=== PATIENT | male | born 1960 | race Caucasian/White ===

== ENCOUNTER → 2023-04-26 10:13 | Outpatient (REF) | payer MEDICARE, OTHER, SELFPAY | LOC: WOUND 10:13 | PROVIDERS: ATTENDING PHYSICIAN Surgery; REFERRING PHYSICIAN Internal Medicine | DX: I87.312 Chronic venous hypertension (idiopathic) with ulcer of left lower extremity (principal); L97.822 Non-pressure chronic ulcer of other part of left lower leg with fat layer exposed; L97.222 Non-pressure chronic ulcer of left calf with fat layer exposed; L97.522 Non-pressure chronic ulcer of other part of left foot with fat layer exposed; I87.2 Venous insufficiency (chronic) (peripheral); E11.9 Type 2 diabetes mellitus without complications; Z87.820 Personal history of traumatic brain injury; G81.94 Hemiplegia, unspecified affecting left nondominant side; Z79.01 Long term (current) use of anticoagulants; I48.20 Chronic atrial fibrillation, unspecified | CPT/HCPCS: 97597; 99212 ==

== ENCOUNTER → 2023-05-24 09:08 | Outpatient (REF) | payer MEDICARE, OTHER, SELFPAY | LOC: WOUND 09:08 | PROVIDERS: ATTENDING PHYSICIAN Surgery; REFERRING PHYSICIAN Internal Medicine | DX: I87.312 Chronic venous hypertension (idiopathic) with ulcer of left lower extremity (principal); L97.822 Non-pressure chronic ulcer of other part of left lower leg with fat layer exposed; L97.222 Non-pressure chronic ulcer of left calf with fat layer exposed; L97.522 Non-pressure chronic ulcer of other part of left foot with fat layer exposed; I87.2 Venous insufficiency (chronic) (peripheral); E11.9 Type 2 diabetes mellitus without complications; Z87.820 Personal history of traumatic brain injury; G81.94 Hemiplegia, unspecified affecting left nondominant side; Z79.01 Long term (current) use of anticoagulants; I48.20 Chronic atrial fibrillation, unspecified | CPT/HCPCS: 11042; 97597 ==

== ENCOUNTER → 2023-08-21 14:32 | Outpatient (REF) | payer MEDICARE, OTHER, SELFPAY | LOC: WOUND 14:32 | PROVIDERS: ATTENDING PHYSICIAN Surgery; REFERRING PHYSICIAN Internal Medicine | DX: I87.312 Chronic venous hypertension (idiopathic) with ulcer of left lower extremity (principal); L97.822 Non-pressure chronic ulcer of other part of left lower leg with fat layer exposed; L97.222 Non-pressure chronic ulcer of left calf with fat layer exposed; L97.522 Non-pressure chronic ulcer of other part of left foot with fat layer exposed; I87.2 Venous insufficiency (chronic) (peripheral); E11.622 Type 2 diabetes mellitus with other skin ulcer; E11.621 Type 2 diabetes mellitus with foot ulcer | CPT/HCPCS: 11042; 97597 ==

== ENCOUNTER → 2023-09-24 14:21 | Outpatient (REF) | payer MEDICARE, OTHER, SELFPAY | LOC: WOUND 14:21 | PROVIDERS: ATTENDING PHYSICIAN Surgery; FAMILY PHYSICIAN Orthopaedic Surgery | DX: I87.312 Chronic venous hypertension (idiopathic) with ulcer of left lower extremity (principal); L97.822 Non-pressure chronic ulcer of other part of left lower leg with fat layer exposed; L97.222 Non-pressure chronic ulcer of left calf with fat layer exposed; L97.522 Non-pressure chronic ulcer of other part of left foot with fat layer exposed; I87.2 Venous insufficiency (chronic) (peripheral); E11.9 Type 2 diabetes mellitus without complications; Z87.820 Personal history of traumatic brain injury; G81.94 Hemiplegia, unspecified affecting left nondominant side; Z79.01 Long term (current) use of anticoagulants; I48.20 Chronic atrial fibrillation, unspecified | CPT/HCPCS: 97597 ==

== ENCOUNTER → 2023-10-15 10:13 | Outpatient (REF) | payer MEDICARE, OTHER, SELFPAY | LOC: WOUND 10:13 | PROVIDERS: ATTENDING PHYSICIAN Surgery; FAMILY PHYSICIAN Internal Medicine | DX: I87.312 Chronic venous hypertension (idiopathic) with ulcer of left lower extremity (principal); L97.822 Non-pressure chronic ulcer of other part of left lower leg with fat layer exposed; L97.222 Non-pressure chronic ulcer of left calf with fat layer exposed; L97.522 Non-pressure chronic ulcer of other part of left foot with fat layer exposed; I87.2 Venous insufficiency (chronic) (peripheral); E11.9 Type 2 diabetes mellitus without complications; G81.94 Hemiplegia, unspecified affecting left nondominant side; I48.20 Chronic atrial fibrillation, unspecified; Z87.820 Personal history of traumatic brain injury | CPT/HCPCS: 97597 ==

== ENCOUNTER → 2024-02-01 12:08 | Outpatient (REF) | payer MEDICARE, OTHER, SELFPAY | LOC: WOUND 12:08 | PROVIDERS: ATTENDING PHYSICIAN Surgery | DX: I87.312 Chronic venous hypertension (idiopathic) with ulcer of left lower extremity (principal); L97.222 Non-pressure chronic ulcer of left calf with fat layer exposed; L97.522 Non-pressure chronic ulcer of other part of left foot with fat layer exposed; I87.2 Venous insufficiency (chronic) (peripheral); L97.822 Non-pressure chronic ulcer of other part of left lower leg with fat layer exposed; E11.9 Type 2 diabetes mellitus without complications; G81.94 Hemiplegia, unspecified affecting left nondominant side; I48.20 Chronic atrial fibrillation, unspecified; Z79.01 Long term (current) use of anticoagulants; Z87.820 Personal history of traumatic brain injury | CPT/HCPCS: 99213 ==

== ENCOUNTER → 2024-03-06 11:00 | Outpatient (REF) | payer MEDICARE, OTHER, SELFPAY | LOC: WOUND 11:00 | PROVIDERS: ATTENDING PHYSICIAN Surgery; FAMILY PHYSICIAN Internal Medicine | DX: I87.312 Chronic venous hypertension (idiopathic) with ulcer of left lower extremity (principal); L97.222 Non-pressure chronic ulcer of left calf with fat layer exposed; L97.522 Non-pressure chronic ulcer of other part of left foot with fat layer exposed; I87.2 Venous insufficiency (chronic) (peripheral); L97.822 Non-pressure chronic ulcer of other part of left lower leg with fat layer exposed; E11.9 Type 2 diabetes mellitus without complications; G81.94 Hemiplegia, unspecified affecting left nondominant side; I48.20 Chronic atrial fibrillation, unspecified; Z79.01 Long term (current) use of anticoagulants; Z87.820 Personal history of traumatic brain injury | CPT/HCPCS: 11042; 97597 ==

== ENCOUNTER 2024-11-26 22:07 | Inpatient (IN) | payer MEDICARE, OTHER, SELFPAY ==
[2024-11-26] VITALS (11 sets, daily range): BP systolic 91–140; BP diastolic 60–97; BMI 38.9
--- NOTE | 2024-11-26 19:00 | ED.GENMED ---
History of Present Illness
General
Chief Complaint: Fever
Time Seen by Provider: 11/26/24 19:00
History of Present Illness
History of Present Illness:
TIME OF INITIAL ENCOUNTER: 7 PM
HPI: Patient came in by ambulance from [facility] due to fever and concerns for sepsis. He has a history of left-sided weakness. Pt is a poor historian. I called [facility] for history at 1915. Nurse tells me that normally he is awake and alert
and communicates without any difficulty. Today, he seemed more tired and he did not want to eat any lunch which is extremely abnormal for him. He was not answering questions appropriately or following commands appropriately.
EXAM:
GENERAL: Ill-appearing, appears uncomfortable, he is febrile, appears akathisic, elevated BMI
HEENT: Moist oral mucosa
CARDIOVASCULAR: Tachycardic rate and rhythm
PULMONARY: Mild tachypnea
ABDOMEN: Soft and nontender with no peritoneal signs
NEUROLOGIC: The patient is not oriented to month or place, markedly decreased strength of the left lower left upper extremities, dysarthria
EXTREMITIES: There is marked warmth and erythema noted to the distal left lower extremity from knee down to the toes, wounds are noted to the pretibial region of the left lower extremity
PYSCHIATRIC: Very limited historian, poor insight and judgment, does not follow simple commands
NUMBER AND COMPLEXITY OF PROBLEMS ADDRESSED AT THE ENCOUNTER
� Chronic conditions affecting care: COPD, A-fib, CHF, high blood pressure, IDDM
� Acute Exacerbation and/or Progression of Chronic Illness: This is an acute problem
� Differential Diagnosis includes: Sepsis, bacteremia, cellulitis, UTI, pneumonia
AMOUNT AND/OR COMPLEXITY OF DATA TO BE REVIEWED AND ANALYZED
� I performed an independent evaluation of and my interpretation is:
EKG: Rapid atrial flutter Dr. Coon for admission
CT:
X-rays: Chest x-ray shows pulmonary arterial hypertension but no sign of pneumonia
Laboratory Studies: Flu negative, white count 14.3, hemoglobin normal, 87% neutrophils, creatinine 1.8 which is higher than prior, urinalysis shows no sign of infection
Other:
� Review of other/old records: I reviewed the notes from [facility] which also indicates the patient is on Depakote. Micro report from 11/27/2020 grew Pseudomonas and [place]
� Clinical information was obtained by an independent historian: I spoke to staff at [facility] at 7:15 PM
� Prescriptions/Medications Considered but not given:
� Further testing considered but not performed:
RISK OF COMPLICATIONS AND/OR MORBIDITY OR MORTALITY OF PATIENT MANAGEMENT
� Social determinants of health affecting care: Resides at [facility]
� Discussion with other providers: Dr. Coon for admission
� Escalation of care including admission/observation vs risk of discharge considered: The patient is found to be tachycardic, febrile and meets sepsis criteria. Giving Vanco and Zosyn for diabetic wound infection involving the
left lower extremity.
ANY OTHER UPDATES:
Patient will be admitted for sepsis likely sources left lower extremity wound infection/cellulitis, XENIA, altered mental status.
Past History
Past History
ED Past Medical History: Arrthythmia (atrial fib), CHF, COPD, CVA, HTN, Hypercholesterolemia, NIDDM, Psychiatric (Anxiety), Other (Traumatic brain injury with left hemiparesis, morbid obesity, gout, cellulitis, Sepsis, PVD, PNA, Ulcer left foot,)
and Other (PNA, Sleep apnea, PVD)
ED Past Surgical History: None
Social History
Tobacco: Non-smoker
Alcohol: None
Drug: None
Personal: Single
Living: snf
Employment: Disabled
Family History
Family History: Other and Unable to obtain
Phy Exam
Physical Exam
Physical Exam:
See HPI
Sepsis
Sepsis Screening
Sepsis Assessment: Sepsis
Sepsis Screen
Sepsis Screen: Sepsis
Date: 11/26/24
Time: 22:15
Course
Orders/Labs/Results
Orders:
Orders
11/26/24 18:56
Complete Blood Count/With Diff Urgent
Comprehensive Metabolic Panel Urgent
Blood Culture Urgent
[place] Source: Blood/Venous
Specimen Description:
INF RAPID [Influenza A+B Rapid Molecular] Urgent
[place] Source: Nasal Swab
Specimen Description:
11/26/24 18:57
COVID-19 Antigen Urgent
Source: Nasal Swab
Lactic Acid Urgent
11/26/24 19:06
Add On- LAB Urgent
Tests Added?: depakote level
11/26/24 19:07
Urinalysis Reflex To Culture Urgent
Date Specimen was Collected: 11/26/24
Time Specimen was Collected: 19:05
Urine Microscopic Reflex Cult Urgent
Blood Culture Urgent
[place] Source: Blood/Venous
Specimen Description:
Date Specimen was Collected: 11/26/24
Time Specimen was Collected: 19:05
Urine Culture Urgent
[place] Source: U
Specimen Description:
Date Specimen was Collected: 11/26/24
Time Specimen was Collected: 19:05
11/26/24 19:10
Acetaminophen [Tylenol] 1,000 mg .ROUTE .STK-MED ONE
Acetaminophen [Tylenol] 1,000 mg PO NOW STA
Piperacillin/Tazo 3.375 Gram [Zosyn] 3.375 gram in 50 ml IV NOW
11/26/24 19:11
CR Chest Portable - 1 View Urgent
Comment:
Reason For Exam: fever tachypnea
Reason Study Needs to be Portable: Patient Unstable
11/26/24 19:12
0.9% Sodium Chloride 500 ml [Nss] 500 ml IV BOLUS
Vancomycin [Vancocin] 2,000 mg 0.9% Sodium Chloride 500 ml [Nss] 500 ml IV NOW
11/26/24 20:02
0.9% Sodium Chloride 1000 ml [Nss] 1,000 ml IV BOLUS
11/26/24 20:04
Add On- LAB Urgent
Tests Added?: depakane
11/26/24 20:30
Depakane Urgent
Wound Culture [Wound/Abscess/Other Culture] Urgent
[place] Source: Leg
Specimen Description: Left
Date Specimen was Collected: 11/26/24
Time Specimen was Collected: 20:15
11/26/24 20:42
Electrocardiogram (*1) Urgent
Reason for Study: Chest Pain
EKG- Treatment ONCE
11/26/24 21:15
Admit/Transfer Patient As Directed
Co-Sign Provider:
Level of Care: Inpatient admission
Assign to:: IMU- Intermediate Care
Physician / Group: Shaggy
Diagnosis: Sepsis
Reason for Hospitalization: IV abx
Expected length of stay greater than two midnights?: Yes
ELOS- Estimated Length of Stay in days: 3
I certify the patient meets the requirements for IP care: Yes
11/26/24 21:16
PRN Pain Medication Management As Directed
May give lesser potent ordered pain med per pt: Yes
preference::
Protocol:: Medication orders for pain may be administered in a
manner that supports deferring to patient preference
when the pt is:
- Requesting an ordered lesser potent pain medication.
Least to most potent pain medications are defined
as: acetaminophen < NSAID < tramadol < opioids
(morphine, oxycodone, hydromorphone).
- Requesting a lesser dose of the same medication IF
ORDERED.
- Requesting a less intrusive route of administration
if both routes are prescribed by the provider (PO <
IV).
11/26/24 21:19
Code Status As Directed
Resuscitation Status: Do not resuscitate
Based on pt advanced directive or healthcare POA form: Yes
DNR Bracelet Application ONCE
11/26/24 21:23
0.9% Sodium Chloride 500 ml [Nss] 500 ml IV BOLUS
Abnormal Lab Results
11/26/24 11/26/24 11/26/24
18:56 19:07 20:30
WBC 14.3 H 10^3/uL
(4.8-10.8)
MCV 76.7 L fL
(80.0-94.0)
MCH 23.0 L pg
(27.0-31.0)
MCHC 30.0 L g/dL
(33.0-37.0)
RDW 20.1 H %
(11.5-14.5)
MPV 10.6 H fL
(7.4-10.4)
Abs Immat Gran (auto) 0.1 H 10^3/uL
(0-0.05)
Absolute Neuts (auto) 12.5 H 10^3/uL
(1.4-6.5)
Absolute Lymphs (auto) 1.0 L 10^3/uL
(1.2-3.4)
Absolute Monos (auto) 0.7 H 10^3/uL
(0.1-0.6)
Neutrophils % 87.3 H %
(42.2-75.2)
Lymphocytes % 6.9 L %
(20.5-51.1)
Chloride 97 L mmol/L
(98-107)
Carbon Dioxide 31 H mmol/L
(22-30)
BUN 45 H mg/dl
(9-20)
Creatinine 1.8 H mg/dL
(0.7-1.3)
Glucose 140 H mg/dl
(70-99)
Total Bilirubin 1.5 H mg/dl
(0.2-1.3)
AST 14 L U/L
(17-59)
Ur Occult Blood Reflex 1+ A
(Negative)
Leukocyte Esterase Rfl 1+ A
(Negative)
Urine Bacteria (Reflex) Few A
(Negative)
Urine Albumin (Reflex) 3+ A
(Neg - Trace)
Valproic Acid 17.4 L ug/ml
(50.0-120.0)
11/26/24 18:56
11/26/24 18:56
Vital Signs
Initial and Last Documented VS:
Initial Vital Signs
Temp Resp
40.2 C H 24
11/26/24 18:45 11/26/24 18:45
Last Documented Vital Signs
Temp Pulse Resp BP Pulse Ox
38.9 C H 121 17 139/97 98
11/26/24 21:59 11/26/24 22:03 11/26/24 22:03 11/26/24 22:03 11/26/24 22:00
*Critical Care Note
Total Time (30-74mins, 75-104mins- exclusive of procedures): Not Applicable
ED Attending Note
-
Portions of this chart may have been created with voice recognition software.� Occasional wrong word or��sound alike� substitutions may have occurred due to the inherent limitations of voice recognition software.
Discharge Plan
Departure
Patient Disposition: Admit
Date of Disposition: 11/26/24
Time of Disposition: 20:34
Presentation/result/management discussed w/ accepting MD/DO: Hospitalist
Discharge Problem:
Sepsis
Interventions
Interventions:
*Risk Screen - Suicide Last Done: 11/26/24 18:52
*General Assessment Last Done: 11/26/24 18:52
*Neglect/Abuse Screening Last Done: 11/26/24 18:52
*ED- Fall Risk Assessment Last Done: 11/26/24 18:52
*ED COVID-19 Vaccine History Last Done: 11/26/24 18:52
ED- Neurological Assessment Last Done: 11/26/24 19:58
ED-Skin Assessment Last Done: 11/26/24 19:58
[2024-11-26 19:16] LABS: % Basophils 0.3 % (0-2); % Eosinophils 0.4 % (0-6); % Immature Granulocytes 0.5 % (0-0.5); % Lymphocytes 6.9 % (20.5-51.1); % Monocytes 4.6 % (1.7-9.3); % Neutrophils 87.3 % (42.2-75.2); Absolute Basophils 0.1 10^3/uL (0-0.2); Absolute Eosinophils 0.1 10^3/uL (0-0.7); Absolute Immature Granulocytes 0.1 10^3/uL (0-0.05); Absolute Monocytes 0.7 10^3/uL (0.1-0.6); Absolute Neutrophils 12.5 10^3/uL (1.4-6.5); Hemoglobin 13.8 g/dL (13.0-18.0); Mean Corpuscular Volume 76.7 fL (80.0-94.0); Mean Platelet Volume 10.6 fL (7.4-10.4); Nucleated Red Blood Cells % 0 % (-); Platelet Count 187 10^3/uL (130-400); Red Cell Dist. Width 20.1 % (11.5-14.5); White Blood Cell Count 14.3 10^3/uL (4.8-10.8)
[2024-11-26 19:17] LABS: Lactic Acid 1.5 mmol/L (0.7-2.0)
[2024-11-26] MEDS: TYLENOL 1000 MG PO (19:17)
[2024-11-26] MEDS: NSS 500 IV ×2 (19:17→23:35)
[2024-11-26 19:18] LABS: Urine Albumin 3+ (Neg - Trace); Urine Bilirubin Negative (Negative); Urine Character Clear (Clear); Urine Color Yellow; Urine Glucose Negative (Negative); Urine Ketone Negative (Negative); Urine Leukocyte 1+ (Negative); Urine Nitrite Negative (Negative); Urine Occult Blood 1+ (Negative); Urine Specific Gravity 1.015 (<1.030); Urine Urobilinogen Negative (Neg - 1+)
[2024-11-26 19:30] LABS: ALT (SGPT) < 10 U/L (0-50); AST (SGOT) 14 U/L (17-59); Albumin 3.9 g/dl (3.5-5.0); Alkaline Phosphatase 61 U/L (38-126); Blood Urea Nitrogen 45 mg/dl (9-20); Calcium 9.3 mg/dl (8.4-10.2); Carbon Dioxide 31 mmol/L (22-30); Chloride 97 mmol/L (98-107); Estimated Creatinine Clearance 55 ml/min; Glucose 140 mg/dl (70-99); Potassium 4.3 mmol/L (3.5-5.1); Sodium 139 mmol/L (135-145); Total Bilirubin 1.5 mg/dl (0.2-1.3); Total Protein 7.7 g/dl (6.3-8.2); eGFR 42.03
[2024-11-26] MEDS: ZOSYN 50 IV (19:31)
[2024-11-26 19:34] LABS: Urine Bacteria Few (Negative); Urine Red Blood Cell 0-2 /HPF (0-2)
[2024-11-26 19:35] LABS: COVID-19 Antigen Negative (Negative)
[2024-11-26] MEDS: NSS 1000 IV (20:26)
[2024-11-26] MEDS: VANCOCIN 540 MG IV (20:26)
[2024-11-26 21:06] LABS: Depakane 17.4 ug/ml (50.0-120.0)
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
[2024-11-26 23:00] LABS: Glucose - Point of Care 130 mg/dl (70-99)
--- NOTE | 2024-11-26 23:14 | PHA.VAN.IN ---
Assessment
- Assessment
Renal Function: Appears elevated from baseline (05/07/22 BASELINE SCR: 1.2)
Concomitant Antimicrobials: ZOSYN
- Previous Dosing Experience
Previous Regimen: DOSING BY RANDOM LEVELS
Date of Regimen: 03/08/22
Provided Trough of: UNKNOWN
Provided AUC of: UNKNOWN
Patient's SCR is: Elevated compared to previous dosing experience (03/08/22 SCR = 1.6)
Patient's weight is: Decreased compared to previous dosing experience (03/08/22 WT = 138.9KG)
Plan
- Plan
Initial / Loading Dose: 2GM
Maintenance Regimen: DOSING BY RANDOM LEVELS
Monitoring: RANDOM VANCOMYCIN LEVEL 11/27/24 AM
Pharmacokinetics Vancomycin I
- -
Patient Age: 64
Patient Sex: Male
Vancomycin Day #: 1
Indication: Skin And Soft Tissue (LLE CELLULITIS/SEPSIS)
Requesting Provider: RIP
Height / Weight:
Height 5 ft 9 in
Actual Weight 123.9 kg
Pertinent Past Medical History: DM-2
- Vital Signs / Lab Results
Temp Pulse Resp BP Pulse Ox
102.1 F H 122 28 139/97 93
11/26/24 21:59 11/26/24 22:30 11/26/24 22:30 11/26/24 22:03 11/26/24 22:15
Lab Results - Hematology
11/26/24
18:56
WBC 14.3 H
Lab Results - Chemistry
11/26/24
18:56
BUN 45 H
Creatinine 1.8 H
Estimated Creat Clear 55
Albumin 3.9
11/26/24
18:57
Lactic Acid 1.5
Lab Results - Urine
11/26/24
19:07
Urine Nitrite (Reflex) Negative
Leukocyte Esterase Rfl 1+ A
Urine WBC (Reflex) 3-5
Ur Squamous Epith Cells 11-15
Urine Bacteria (Reflex) Few A
Microbiology Results
11/26/24 18:56 Influenza Types A & B (JYOTHI) - Final
Nasal Swab Negative for Influenza A & B, NAAT
Negative results must be combined with clinical observations
and patient history.
Nucleic Acid Amplification test (NAAT)performed on the
[employer] platform.
[2024-11-26] MEDS: FLOMAX 0.4 MG PO (23:29)
[2024-11-26] MEDS: LIPITOR 10 MG PO (23:29)
[2024-11-26] MEDS: ZYLOPRIM 100 MG PO (23:29)
--- NOTE | 2024-11-26 23:52 | PTCARENOTE ---
Received patient from ED around 2300. Patient aao x1 to self. Speech is garbled and unclear at times, patient forget. ST on the monitor, positive radial pulses b/l, weak pp b/l. Lung sounds diminished, poor respiratory effort. Pox 94% on midflow at
10L, patient continuously removing midflow and requiring continuous reminders and reapplying o2. Tachypnea noted. BS active x4, patient continent and refusing condom cath at this time. Instructed patient on use of urinal and use of call pedersen.
Patient able to teach back information related to urinal and call pedersen. ED RN states patient urinated in urinal prior to transfer to IMU. LLE wounds noted; large scab to medial anterior rowell, scabbed. Small open areas scattered left foot. LLE with
redness throughout. Wound care consulted. Patient currently resting in bed, bed alarm on. Patient states that at facility he uses w/c for mobility. Denies pain. Will continue to monitor patient closely.
[2024-11-27] VITALS (24 sets, daily range): BP systolic 92–123; BP diastolic 54–100; BMI 38.9
[2024-11-27] MEDS: DEPAKOTE (12 HR RELEASE) 125 MG PO ×4 (01:16→19:30)
[2024-11-27] MEDS: TYLENOL 650 MG PO ×3 (01:16→19:31)
[2024-11-27] MEDS: ZOSYN 100 IV ×2 (01:17→08:40)
[2024-11-27] MEDS: DESENEX/MITRAZOL/ZEASORB 1 APPLIC TOPICAL ×3 (01:22→19:31)
[2024-11-27 04:43] LABS: Hematocrit 39.4 % (39.0-52.0); Hemoglobin 11.6 g/dL (13.0-18.0); Mean Corp Hgb Conc. 29.4 g/dL (33.0-37.0); Mean Corpuscular Hgb 22.8 pg (27.0-31.0); Mean Corpuscular Volume 77.4 fL (80.0-94.0); Mean Platelet Volume 10.6 fL (7.4-10.4); Platelet Count 146 10^3/uL (130-400); Red Blood Cell Count 5.09 10^6/uL (4.70-6.10); Red Cell Dist. Width 19.2 % (11.5-14.5); White Blood Cell Count 15.4 10^3/uL (4.8-10.8)
[2024-11-27 04:57] LABS: Blood Urea Nitrogen 42 mg/dl (9-20); Calcium 8.1 mg/dl (8.4-10.2); Carbon Dioxide 30 mmol/L (22-30); Chloride 102 mmol/L (98-107); Estimated Creatinine Clearance 63 ml/min; Glucose 142 mg/dl (70-99); Potassium 3.6 mmol/L (3.5-5.1); Sodium 140 mmol/L (135-145); eGFR 48.41
[2024-11-27 05:00] LABS: Vancomycin Random 17.6 ug/ml
[2024-11-27 08:14] LABS: Glucose - Point of Care 125 mg/dl (70-99)
[2024-11-27] MEDS: NOVOLOG FLEXPEN-LOW RESISTANCE SC ×3 (08:35→18:07)
--- NOTE | 2024-11-27 08:36 | W.PN.HOSP.TC ---
Today's Communication/Plan
-
await ID
consult pulm
wwean O2
cont abx
follow cultures
Assessment / Plan
Assessment / Plan
pt is a 64 year old male
Severe Sepsis secondary to presumed Left Lower Extremity Cellulitis--no PNA on CXR, UA essentially negative--cont vanco/zosyn--recheck blood cultures this AM with shivering--yesterday's cultures pending--consult ID and wound care
acute hypoxemic resp failure--on 10L O2--possibly due to sepsis (no PNA) vs pulm HTN (chronic as per CXR?) but on no pHTN meds--consult pulm--wean O2 as able--no need for steroids as pt not wheezing
Acute Kidney Injury--baseline creat ~1.2? (last documentation from 2021)--s/p sepsis fluid bolus dosing--hold torsemide, metformin, metolazone--follow creat--consider renal if no improvement--renal dose meds
Chronic HFpEF--no acute exacerbation--diuretics on hold--follow weights, I/Os
Paroxysmal Atrial Fibrillation--Continue metoprolol for rate control with hold parameters--Continue Eliquis for anticoagulation
CVA with Left Hemiparesis and Dysarthria--Patient report wheelchair bound at baseline--PT/OT when able
Diabetes Mellitus, Type II--Hold metformin--Monitor sugars and continue coverage insulin
Hyperlipidemia--Continue atorvastatin
TBI with Intellectual Disability--Bipolar Disorder--Continue Depakote
BPH--Continue tamsulosin
Gout--Continue allopurinol and colchicine
Morbid Obesity due to Excess Calories--Affects all aspects of care
DVT proph--Eliquis
Code Status--DNR per [place] Paperwork
Total Critical Care Time 32 minutes. I was immediately available to the patient and staff. I personally examined, reviewed labs, diagnostic images/reports, interpretations, treatment plans, discussed patient care with other providers and family
or caregivers (if patient is unable to make decisions), entered orders as appropriate and documented the medical record.
Anticipated Discharge: > 48 hours
Subjective/Interval History
-
Date of Service: November 27, 2024
pt c/o of being cold/shivering
Objective Data
-
Labs:
Laboratory Results
11/27/24
04:15
WBC 15.4 H
Hgb 11.6 L
Hct 39.4
Plt Count 146 D
Sodium 140
Potassium 3.6
Chloride 102
Carbon Dioxide 30
BUN 42 H
Creatinine 1.6 H
Glucose 142 H
Calcium 8.1 L
Vital Signs:
max temp for 24 hours
11/26/24
18:45
Temp 104.3 F H
Vital Signs
Temp Pulse Resp BP Pulse Ox
102.3 F H 102 27 108/77 89
11/27/24 03:00 11/27/24 07:15 11/27/24 07:15 11/27/24 07:00 11/27/24 07:15
Review of Systems
-
All other systems: Reviewed and negative
Constitutional: Reports Chills
Physical Exam
-
General: Well Developed, Well Nourished and No Apparent Distress; Negative Comfortable (appears uncomfortable)
HEENT: Normocephalic, Atraumatic and Oxygen (10L)
Respiratory: Clear to Auscultation; Negative Wheezes, Rales, Rhonchi or Crackles
Cardiac: Regular Rhythm, S1/S2 and Tachycardic
GI: Soft, Nontender, Nondistended and Normal Bowel Sounds
Musculoskeletal: No Clubbing, No Cyanosis and Other (left leg with shortened toes, leg red to knee, scabbed area under bandages--leg warm)
Neuro: Awake and Alert
Psych: Calm
[2024-11-27] MEDS: LOPRESSOR 25 MG PO (08:39)
[2024-11-27] MEDS: ELIQUIS 5 MG PO ×2 (08:39→19:30)
[2024-11-27] MEDS: ZYLOPRIM 300 MG PO (08:39)
[2024-11-27] MEDS: COLCHICINE 0.6 MG PO (08:41)
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
[2024-11-27 09:39] LABS: Glycohemoglobin (HgbA1c) 6.4 % (4.0-5.6)
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
--- NOTE | 2024-11-27 10:19 | PHA.VAN.FU ---
Vancomycin Assessment / Plan
- Assessment
Renal Function: SCR Decreasing
WBC's are: Trending Up
In the past 24 hrs, patient has been: Febrile (102.3)
- Assessment - Therapeutic Drug Monitoring
Random Level: R=17.6 (approx. 8 hours post dose)
- Dosing Plan
Dosing by Level: Re-dose today (vancomycin 1500 mg x 1)
- Monitoring Plan
Random Level: 5.9 @ 0600
- Follow Up
Pharmacy will continue to follow.
Vancomycin Follow UP
- -
Patient Age: 64
Patient Sex: Male
Vancomycin Day #: 2
Indication: Skin And Soft Tissue (LLE CELLULITIS/SEPSIS)
Requesting Provider: RIP
Height / Weight:
Height 5 ft 10 in
Actual Weight 123.1 kg
Pertinent Past Medical History: DM-2
- Vital Signs / Lab Results
Temp Pulse Resp BP Pulse Ox
99.2 F 102 27 108/77 89
11/27/24 07:15 11/27/24 07:15 11/27/24 07:15 11/27/24 07:00 11/27/24 07:15
Lab Results - Hematology
11/26/24 11/27/24
18:56 04:15
WBC 14.3 H 15.4 H
Lab Results - Chemistry
11/26/24 11/27/24
18:56 04:15
BUN 45 H 42 H
Creatinine 1.8 H 1.6 H
Estimated Creat Clear 55 63
Albumin 3.9
11/26/24
18:57
Lactic Acid 1.5
Lab Results - Urine
11/26/24
19:07
Urine Nitrite (Reflex) Negative
Leukocyte Esterase Rfl 1+ A
Ur Squamous Epith Cells 11-15
Microbiology Results
11/26/24 18:56 Influenza Types A & B (JYOTHI) - Final
Nasal Swab Negative for Influenza A & B, NAAT
Negative results must be combined with clinical observations
and patient history.
Nucleic Acid Amplification test (NAAT)performed on the
[employer] platform.
Therapeutic Drug Monitoring
Random Vancomycin 17.6 ug/ml 11/27/24 04:15
--- NOTE | 2024-11-27 10:25 | CON.PUL ---
Consultation
Consultation Request
Date/Time Consultation Requested: 11/27/2024
Date/Time Consultation Performed: 11/27/2024
Requesting Provider: Dr. Rausch
Performing Provider: Dr. Tio Mackey
Reason for Consultation: acute hypoxemic respiratory failure
Medical History
-
History of Present Illness:
64-year-old male with past medical history significant for TBI, chronic disability, prior CVA, type 2 diabetes who presented to the emergency room from the shelter for evaluation of fever and lethargy. Apparently the day of admission refused
eating. Patient has been more lethargic. He was febrile. He was found to have possible left lower extremity cellulitis. He has a chronic appearing deformity of the left foot.
He was also noted to be hypoxemic in the emergency room with a pulse ox of 80%.
We were consulted for his hypoxemia.
Chest x-ray reviewed: No acute infiltrate. Signs of pulmonary hypertension.
Past Medical History
Past Medical History: Other (See assessment and plan)
Social History
Tobacco: Non-smoker
Alcohol: None
Living: Jail ([facility])
Employment: Disabled
Family History
Family History: Reviewed & Not Pertinent
Allergies / Home Medications
Allergies
Allergy/AdvReac Type Severity Reaction Status Date / Time
red dye Allergy Unknown Unknown Verified 03/08/22 12:39
Home Medications
�Medication �Instructions �Recorded �Confirmed �Last Taken �Type
atorvastatin 10 mg tablet 10 mg PO HS High cholesterol 06/03/17 11/26/24 Unknown History
acetaminophen 325 mg tablet 650 mg PO Q6HPRN PRN temp>100, 03/28/18 11/26/24 Unknown History
mild pain
magnesium hydroxide 400 mg/5 mL 30 ml PO DAILYPRN PRN constipation 03/28/18 11/26/24 Unknown History
oral suspension (Milk of Magnesia)
sodium phosphates 19 gram-7 118 ml MN DAILYPRN PRN if dulcolax 03/28/18 11/26/24 Unknown History
gram/118 mL enema (Enema) ineffective in 24h
allopurinol 300 mg tablet 300 mg PO DAILY Gout 02/17/20 11/26/24 Unknown History
apixaban 5 mg tablet (Eliquis) 5 mg PO BID Blood clot 02/17/20 11/26/24 Unknown History
prevention/tx
metolazone 2.5 mg tablet 2.5 mg PO TUSA give 30min prior to 11/23/20 11/26/24 Unknown History
torsemide
torsemide 20 mg tablet 20 mg PO BID Heart Failure 11/23/20 11/26/24 Unknown History
ammonium lactate 12 % lotion 1 applic topical BID left lower 12/01/21 11/26/24 Unknown History
limb
colchicine 0.6 mg tablet 0.6 mg PO DAILY Gout 12/01/21 11/26/24 Unknown History
potassium chloride 20 mEq 20 meq PO BID Electrolyte Repletion 12/01/21 11/26/24 Unknown History
tablet,extended
release(part/cryst) (Klor-Con M)
allopurinol 100 mg tablet 100 mg PO HS Gout 03/08/22 11/26/24 Unknown History
bisacodyl 10 mg rectal suppository 10 mg MN DAILY PRN constipation 04/01/22 11/26/24 Unknown History
(Dulcolax (bisacodyl))
dextrose 40 % oral gel (Gluco 15 g PO DAILY PRN bs <60 04/01/22 11/26/24 Unknown History
Burst)
glucagon HCl 1 mg solution for 1 mg IM PRN PRN hypoglycemia 04/01/22 11/26/24 Unknown History
injection (Glucagon (HCl)
Emergency Kit)
ferrous sulfate 325 mg (65 mg 325 mg PO DAILY Supplement #0 tabs 04/04/22 11/26/24 Unknown Rx
iron) tablet (FeroSul)
metformin 1,000 mg tablet 1,000 mg PO BID@0800,1700 Diabetes 04/04/22 11/26/24 Unknown Rx
#0 tabs
calcium carbonate (Calcium 600) 600 mg PO DAILY 11/26/24 11/26/24 Unknown History
cholecalciferol (vitamin D3) 25 25 mcg PO DAILY 11/26/24 11/26/24 Unknown History
mcg (1,000 unit) tablet
divalproex 125 mg tablet,delayed 125 mg PO TID 11/26/24 11/26/24 Unknown History
release
metoprolol tartrate 25 mg tablet 25 mg PO DAILY 11/26/24 11/26/24 Unknown History
niacin 500 mg tablet 500 mg PO BID 11/26/24 11/26/24 Unknown History
tamsulosin 0.4 mg capsule 0.4 mg PO HS 11/26/24 11/26/24 Unknown History
Review of Systems
-
Unable to Obtain full review of systems at this time due to: Acuity
Vitals / Labs / Diagnostic Testing
Vital Signs
Temp Pulse Resp BP Pulse Ox
99.2 F 102 27 108/77 89
11/27/24 07:15 11/27/24 07:15 11/27/24 07:15 11/27/24 07:00 11/27/24 07:15
Lab Data
11/27/24 04:15
11/27/24 04:15
Microbiology
11/26/24 18:56 Nasal Swab Influenza Types A & B (JYOTHI) - Final
Negative for Influenza A & B, NAAT
Negative results must be combined with clinical observations
and patient history.
Nucleic Acid Amplification test (NAAT)performed on the
[employer] platform.
Diagnostic Testing:
Physical Exam
-
HEENT: Normocephalic
Cardiovascular: S1/S2
Respiratory: Non-Labored Respirations
GI: Soft and Non Distended
Neurology: Awake, Alert, Other (Following commands and able to communicate.) and Other ( Dysarthric-baseline)
Skin: Warm and Other (Left lower extremity with chronic changes, cyanotic, erythematous.)
General: Comfortable
Assessment
-
64-year-old man with past medical history noted. Admitted to the hospital with lethargy, fevers. Found to be septic with left lower extremity cellulitis. Also found to be hypoxemic. We were consulted for hypoxemia. Of note, patient has been on
Eliquis at the shelter due to history of atrial fibrillation. No prior history of pulmonary disease. Noted on the chart patient is hypercapnic since 2019 with RV dysfunction on echocardiogram.
Acute hypoxemic respiratory failure-suspect due to pulmonary hypertension in the setting of sepsis. Likely also related to chronic hypoventilation.
History of pulmonary hypertension:
Suspect due to chronic untreated hypercapnia-echocardiogram 02/19/2020 with dilated right ventricular size.
Chronic hypercapnic respiratory failure: Likely obesity hypoventilation syndrome.
ABG 11/23/2020: 7.44/62/76.
Sepsis due to lower extremity cellulitis left
Acute kidney injury
Conditions present prior admission:
Chronic heart failure with preserved ejection fraction
Echocardiogram 02/19/2020: Mild LVH. Dilated right ventricle with preserved contractility.
History of paroxysmal atrial fibrillation
History of CVA with left hemiparesis and dysarthria
Type 2 diabetes
Hyperlipidemia
TBI with intellectual disability/bipolar disorder
BPH
Gout
Morbid obesity
Chronic hypercapnic respiratory failure
DNR
-
Assessment and plan:
Patient admitted for sepsis due to lower extremity cellulitis and altered mental status.
Found to be hypoxemic in the emergency room. Chest x-ray without acute infiltrate.
Patient does have history of pulmonary hypertension with RV dysfunction-suspect due to chronic hypercapnic respiratory failure based on ABG from 2020.
-
To my evaluation, patient has a strong cough effort.
Currently off oxygen and pulse ox is 93%.
Lung exam relatively clear
Suspect hypoxemia was in the setting of underlying pulmonary hypertension, possibly hypoventilation when he was lethargic.
He states that he would not want to use any BiPAP or CPAP.
If there is worsening mental status change would update ABG.
Incentive spirometry encouraged
Avoid sedatives
-
Prior pulmonary hypertension with RV dysfunction noted.
Will update echocardiogram
-
If patient allows, nocturnal BiPAP and with naps may be helpful.He refused.
-
Patient has been on anticoagulation-doubt thromboembolic disease. He has history of atrial fibrillation.
-
Continue antibiotics for cellulitis
Follow renal function and electrolytes
-
Will follow.
--- NOTE | 2024-11-27 10:56 | WOUNDNOTE ---
LEFT MEDIAL LEG
--- NOTE | 2024-11-27 10:57 | WOUNDNOTE ---
LEFT GREAT TOE
--- NOTE | 2024-11-27 10:58 | WOUNDNOTE ---
LEFT DORSAL FOOT
--- NOTE | 2024-11-27 10:59 | WOUNDNOTE ---
LEFT LATERAL LEG
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
[2024-11-27] MEDS: ANCEF 10 IV ×2 (12:52→19:30)
[2024-11-27 14:39] LABS: Glucose - Point of Care 119 mg/dl (70-99)
[2024-11-27] MEDS: HYDROPHOR 1 APPLIC TOPICAL (14:52)
[2024-11-27 17:51] LABS: Glucose - Point of Care 135 mg/dl (70-99)
--- NOTE | 2024-11-27 19:12 | PTCARENOTE ---
see nursing assessment. pt weaned down to 8 liters o2. nofever this shift. blood cultures sent.
[2024-11-27] MEDS: FLOMAX 0.4 MG PO (19:30)
[2024-11-27] MEDS: LIPITOR 10 MG PO (19:30)
[2024-11-27] MEDS: ZYLOPRIM 100 MG PO (19:30)
[2024-11-27 21:16] LABS: Glucose - Point of Care 163 mg/dl (70-99)
--- NOTE | 2024-11-27 22:32 | PTCARENOTE ---
Patient aaox1 to self, affect pleasant. Speech garbled, baseline. Pt temp 100.9 at start of shift, prn tylenol administered as ordered. Patient did not have chills at that time. Patient voiding in urinal, 500ml clear yellow thus far this shift. LLE
chaka wraps remain intact. Patient remains on 8L midflow, frequently removes o2 and requires frequent reminders with education on o2 application and need. Patient currently resting in bed, uses call pedersen appropriately. Will continue to monitor patient
closely.
[2024-11-28] VITALS (22 sets, daily range): BP systolic 91–128; BP diastolic 50–96; PULSE 81; O2SAT 95; BMI 39.5
[2024-11-28] MEDS: ANCEF 10 IV ×3 (03:18→21:00)
[2024-11-28 04:26] LABS: Blood Urea Nitrogen 38 mg/dl (9-20); Calcium 8.3 mg/dl (8.4-10.2); Carbon Dioxide 28 mmol/L (22-30); Chloride 102 mmol/L (98-107); Estimated Creatinine Clearance 72 ml/min; Glucose 107 mg/dl (70-99); Potassium 3.9 mmol/L (3.5-5.1); Sodium 138 mmol/L (135-145); eGFR 56.83
[2024-11-28 07:52] LABS: Glucose - Point of Care 110 mg/dl (70-99)
[2024-11-28] MEDS: ELIQUIS 5 MG PO ×2 (08:02→21:01)
[2024-11-28] MEDS: LOPRESSOR 25 MG PO (08:02)
[2024-11-28] MEDS: ZYLOPRIM 300 MG PO (08:02)
[2024-11-28] MEDS: NOVOLOG FLEXPEN-LOW RESISTANCE SC ×3 (08:02→16:32)
[2024-11-28] MEDS: COLCHICINE 0.6 MG PO (08:02)
[2024-11-28] MEDS: DEPAKOTE (12 HR RELEASE) 125 MG PO ×3 (08:03→21:00)
[2024-11-28] MEDS: HYDROPHOR 1 APPLIC TOPICAL (08:03)
[2024-11-28] MEDS: DESENEX/MITRAZOL/ZEASORB 1 APPLIC TOPICAL ×2 (08:04→21:01)
--- NOTE | 2024-11-28 08:16 | W.PN.HOSP.TC ---
Today's Communication/Plan
-
see A/P
Assessment / Plan
Assessment / Plan
A/P:
# Severe Sepsis POA secondary to presumed Left Lower Extremity Cellulitis
No PNA on CXR, UA essentially negative, blood cultures so far negative
vanco/zosyn deescalated to Ancef by ID
Appreciate ID and wound care
# acute hypoxic resp failure POA, suspect in the setting of underlying pulmonary hypertension, possibly hypoventilation when he was lethargic, resolved
# Severe chronic pulm HTN per CXR
10L NC -> 7L NC , cont to wean O2 as tolerated
Appreciate pulm input
# Acute Kidney , improving
SCr 1.8 on admission -> 1.4 today; baseline creat ~1.2
Cont to hold torsemide, metformin, metolazone
follow creat
# Chronic HFpEF, not in acute exacerbation
diuretics on hold
follow weights, I/Os
# Paroxysmal Atrial Fibrillation
Continue metoprolol for rate control with hold parameters
Continue Eliquis for anticoagulation
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
SPL eval
Patient report wheelchair bound at baseline
PT/OT when able
# Diabetes Mellitus, Type II
Hold metformin
Monitor sugars and continue coverage insulin
# Hyperlipidemia
Continue atorvastatin
# TBI with Intellectual Disability
# Bipolar Disorder
Continue Depakote
# BPH
Continue tamsulosin
# Gout
Continue allopurinol and colchicine
# Morbid Obesity due to Excess Calories
Affects all aspects of care
DVT proph: Eliquis
Code Status: DNR per [facility] Paperwork
total time 51 min
Anticipated Discharge: > 48 hours
Subjective/Interval History
-
Date of Service: November 28, 2024
Objective Data
-
Labs:
Laboratory Results
11/28/24
03:28
Sodium 138
Potassium 3.9
Chloride 102
Carbon Dioxide 28
BUN 38 H
Creatinine 1.4 H
Glucose 107 H
Calcium 8.3 L
Vital Signs:
Vital Signs
Temp Pulse Resp BP Pulse Ox
36.7 C 81 24 108/77 98
11/28/24 03:02 11/28/24 08:02 11/28/24 06:00 11/28/24 08:02 11/28/24 06:00
I&O
11/27/24 11/28/24 11/29/24
06:59 06:59 06:59
Intake Total 1540 / 1540
Output Total 2600 / 2600
Balance -1060 / -1060
Review of Systems
-
History Source: Patient
All other systems: Reviewed and negative
Physical Exam
-
General: Well Developed, Well Nourished and Comfortable
HEENT: Normocephalic, Atraumatic and Oxygen (7L)
Respiratory: Clear to Auscultation and Non Labored Respirations; Negative Accessory Resp Muscle Use
Cardiac: Regular Rhythm and S1/S2
GI: Soft, Nontender, Nondistended and Normal Bowel Sounds
Musculoskeletal: No Clubbing, No Cyanosis and Other (left leg erythema, see wound care note )
Neuro: Awake and Alert
Psych: Calm
Data Reviewed
-
Labs: Labs Reviewed by me
--- NOTE | 2024-11-28 09:15 | PTCARENOTE ---
Patient received from chip person. Patient resting comfortably in bed. AAOx1, mostly to self, VSS. No events noted overnight. No complaints of pain at this time. Currently on 8L Midflow N/C, will attempt to wean. Continuing ABX. Continuing
compression therapy. Wounds to be changed later. No testing scheduled at this time. Call pedersen in reach.
--- NOTE | 2024-11-28 10:31 | W.PN.ID1 ---
Addendum entered and electronically signed by Nia Quinn MD 11/28/24 13:52:
I saw and evaluated the patient. I reviewed the resident�s note and agree with findings and plan as documented in the resident�s note with the following additions/corrections
Subjective:
fever curve improved
bp stable
on 8L midflow overnight
Physical Exam
General: NAD, obese
Respiratory: Clear bilaterally, no wheeze, rales or ronchi
Cardiac: S1/S2, Regular Rhythm, no murmurs gallops or rubs
GI: Soft, nondistended, nontender, no rebound or guarding
Genito-urinary: no suprapubic tenderness
Skin: there is mild erythema, warmth of the LLE
Neuro: Chronic left hemiparesis
Assessment and Plan:
Chronic wound
Secondary Cellulitis
XENIA - improving
DM2 under good control
Bipolar on valproic acid
Gout
- Ts via a consistent route to make fever curve meaningful - recommend oral route
- blood cultures x2 in progress
- wound culture in progress so for with S aureus, MRSA screen negative, expect polymicrobial cultures, the wounds will be transiently colonized with shifting bacterial loads through time and strep/staph is the most likely cause here even if other
pathogens are seen colonizing the wound
- MRSA screen negative
- urine culture pending, however minimal pyuria and low suspicion for UTI
- continue cefazolin today - likely deescalate to keflex 500 mg po qid x 10 days 11/26-12/05 tomorrow pending sensi on the S aurues from the wound - most likely MSSA
- elevation and compression as tolerated
Pulmonary HTN
- appears to be a new diagnosis - suggest outpatient follow up with pulmonary
AW
Original Note:
Date of Service
Date of Service: November 28, 2024
Patient seen and examined at bedside. Overnight, patient was reported to be oriented to self only with temperature of 100.9 which resolved with Tylenol.
Patient has no acute complaints today, but inquiring when he will be able to go home. He was on O2 8 L mid flow overnight which has been weaned to 7 L mid flow. Patient is pleasant, denies chest pain, shortness of breath, chills, nausea or
vomiting.
Today's Communication
Compression and Stan wrap as needed, with LLE elevation
Continue cefazolin 2 g IV Q8H
Follow cultures
Assessment / Plan
Assessment: 64-year-old male with PMH of type 2 diabetes mellitus, chronic LLE wounds, who was admitted from [facility] with fever, hypotension, tachycardia, anorexia and lethargy.
Assessment/plan:
#Sepsis
#Cellulitis of LLE
#Pulmonary hypertension
#DM type II-A1c pending
- MRSA screen negative.
- Blood cultures 11/26 x 2 no growth in 24 hours, repeat blood cultures 11/27 in progress. History of Pseudomonas, Providencia and group C strep of left lower extremity wound in 2020.
- Wound cultures 11/26 positive for Staph aureus, in progress. Suspect MSSA.
- UA with mild pyuria, urine culture pending, low suspicion for UTI.
- Continue cefazolin 2 g IV Q8H and follow cultures.
- Will switch to oral at some point.
- Stan wrap with SCDs as tolerated; elevate legs to enhance blood flow/healing.
- Pulmonary hypertension, echocardiography 11/27/2024
Chief Complaint
-: Fever and Cellulitis
Subjective / Review of Systems
Review of Systems: No Fever, No Chills, No Headache, No Cough, No Chest Pain, No Palpitations, No Abdominal Pain, No Nausea, No Vomiting, No Diarrhea, No Joint Pain and Other
Vital Signs / Physical Exam
Vital Signs
Vital Signs
Temp Pulse Resp BP Pulse Ox
98.0 F 81 24 108/77 98
11/28/24 03:02 11/28/24 08:02 11/28/24 06:00 11/28/24 08:02 11/28/24 06:00
Physical Exam
Constitutional: No Acute Distress, Comfortable and Obese
Cardiovascular: Regular Rate and S1/S2
Pulmonary: Wheezes (Scattered bilateral wheezes) and Non Labored
Gastrointestinal: Soft, Non Tender, Non Distended, No Rebound, No Guarding and Other (Obese abdomen)
Extremities: Calf Swelling
Musculoskeletal: Other (Pain with ambulation); Negative Joint Swelling or Joint Effusion
Skin: Warm, Dry and Other (Superficial wound in LLE, great toe and third digits with honey crusting; mid rowell mildly warm to touch with moderate erythema, no significant drainage)
Wound: Other (Superficial wound in LLE 1st and 3rd digits)
Neurological: Awake and AO x 3
Psychological: Calm
Objective Data
Lab Data
Lab Results
11/27/24 04:15
11/28/24 03:28
Estimated Creat Clear 72 ml/min 11/28/24 03:28
Lactic Acid 1.5 mmol/L (0.7-2.0) 11/26/24 18:57
Total Bilirubin 1.5 mg/dl (0.2-1.3) H 11/26/24 18:56
AST 14 U/L (17-59) L 11/26/24 18:56
ALT < 10 U/L (0-50) 11/26/24 18:56
Alkaline Phosphatase 61 U/L (38-126) 11/26/24 18:56
Most recent labs reviewed.
Microbiology: Report Reviewed
Micro Results:
11/26/24 19:07 Urine Culture - Final
Urine NO GROWTH
11/26/24 20:30 Wound Culture - Preliminary
Leg - Left Staphylococcus aureus
Gram Stain - Preliminary
11/27/24 04:16 MRSA Screen - Final
Nose No Methicillin Resistant Staphylococcus aureus isolated.
11/26/24 19:07 Blood Culture - Preliminary
Blood/Venous No Growth in 24 hours- Final report to follow
11/26/24 18:56 Blood Culture - Preliminary
Blood/Venous No Growth in 24 hours- Final report to follow
11/27/24 10:29 Blood Culture - Pending
Blood/Venous
11/26/24 18:56 Influenza Types A & B (JYOTHI) - Final
Nasal Swab Negative for Influenza A & B, NAAT
Negative results must be combined with clinical observations
and patient history.
Nucleic Acid Amplification test (NAAT)performed on the
[employer] platform.
Care Review
Plan reviewed with: Nurse and Physician
--- NOTE | 2024-11-28 10:59 | W.PN.PUL3 ---
Today's Communication / Plan
-
Continue oxygen supplementation as needed
Chest x-ray without infiltrate-doubt acute pulmonary process.
Speech evaluation ongoing
Incentive spirometry
Continue to treat sepsis
Ideally BiPAP is recommended but patient is refusing.
May benefit from nocturnal oxygen supplementation after discharge.
Will follow
Assessment
-
64-year-old man with past medical history noted. Admitted to the hospital with lethargy, fevers. Found to be septic with left lower extremity cellulitis. Also found to be hypoxemic. We were consulted for hypoxemia. Of note, [facility] to [facility] of [facility] fibrillation. No prior history of pulmonary disease. Noted on the chart patient is hypercapnic since 2019 with RV dysfunction on echocardiogram.
Acute hypoxemic respiratory failure-suspect due to pulmonary hypertension in the setting of sepsis. Likely also related to chronic hypoventilation.
History of pulmonary hypertension:
Suspect due to chronic untreated hypercapnia-echocardiogram 02/19/2020 with dilated right ventricular size.
Chronic hypercapnic respiratory failure: Likely obesity hypoventilation syndrome.
ABG 11/23/2020: 7.44/62/76.
Sepsis due to lower extremity cellulitis left
Acute kidney injury
Conditions present prior admission:
Chronic heart failure with preserved ejection fraction
Echocardiogram 02/19/2020: Mild LVH. Dilated right ventricle with preserved contractility.
History of paroxysmal atrial fibrillation
History of CVA with left hemiparesis and dysarthria
Type 2 diabetes
Hyperlipidemia
TBI with intellectual disability/bipolar disorder
BPH
Gout
Morbid obesity
Chronic hypercapnic respiratory failure
DNR
-
Assessment and plan:
Patient admitted for sepsis due to lower extremity cellulitis and altered mental status.
Found to be hypoxemic in the emergency room. Chest x-ray without acute infiltrate.
Patient does have history of pulmonary hypertension with RV dysfunction-suspect due to chronic hypercapnic respiratory failure based on ABG from 2020.
-
Continues to have a strong cough effort
Overnight placed back on oxygen-suspect due to obstructive sleep apnea and hypoventilation.
This morning on 7 L and pulse ox was 98%. Decrease to 5 L and he is holding-wean off as able-definitely placed oxygen at night.
Lung exam relatively clear
strong cough effort
encourage incentive spirometry
Speech evaluation ongoing.
-
Suspect hypoxemia at presentation was in the setting of underlying pulmonary hypertension, possibly hypoventilation when he was lethargic and sepsis.
He states that he would not want to use any BiPAP or CPAP.
If there is worsening mental status change would update ABG.
Avoid sedatives
-
Prior pulmonary hypertension with RV dysfunction noted. Pulmonary hypertension likely due to untreated chronic hypercapnia.
Echocardiogram: 11/27/2024-normal LVEF. Mild LVH. Ejection fraction 55 to 60%.
Dilated, hypocontractile right ventricle.
Moderate TR. The IVC is mildly dilated.
At some point may benefit from gentle diuresis once sepsis is resolved.
-
If patient allows, nocturnal BiPAP and with naps may be helpful. He refused.
Recommend discharging on nocturnal oxygen.
High risk situation.
Avoid sedatives.
-
Patient has been on anticoagulation-doubt thromboembolic disease. He has history of atrial fibrillation.
-
Continue antibiotics for cellulitis-per primary team.
Follow renal function and electrolytes
-
Will continue to follow-up
Subjective Data
-
Date of Service:
Date of Service: November 28, 2024
Chief Complaint: Pulmonary Follow Up (Hypoxemia)
Subjective:
Patient offers no significant pulmonary complaint
Denies increased cough or phlegm production
Review of Systems
Cardiopulmonary: Cough (n) and Sputum Production (n)
GI: Abdominal Pain (n) and Nausea (n)
Objective Data
Data Reviewed
Vital Signs / I&O / Oxygen:
Vital Signs
Temp Pulse Resp BP Pulse Ox
98.0 F 81 24 108/77 98
11/28/24 03:02 11/28/24 08:02 11/28/24 06:00 11/28/24 08:02 11/28/24 06:00
Intake and Output
11/27/24 11/28/24 11/29/24
06:59 06:59 06:59
Intake Total 1540 / 1540
Output Total 2600 / 2600
Balance -1060 / -1060
SaO2 98
Nasal Cannula flow liters per 8
minute
Physical Exam
General: Comfortable
HEENT: Normocephalic
Cardiovascular: S1-S2
Respiratory: Clear and Non-Labored Respirations
GI: Soft and Non Distended
Neurology: Awake, Alert and Other (Dysarthria-baseline)
Skin: Other (Left lower extremity with chronic changes-erythema)
Labs/Micro/Reports
Microbiology
11/27/24 10:29 Blood/Venous Blood Culture - Preliminary
No Growth in 24 hours- Final report to follow
11/26/24 19:07 Urine Urine Culture - Final
NO GROWTH
11/26/24 20:30 Leg - Left Wound Culture - Preliminary
Staphylococcus aureus
11/26/24 20:30 Leg - Left Gram Stain - Preliminary
11/27/24 04:16 Nose MRSA Screen - Final
No Methicillin Resistant Staphylococcus aureus isolated.
11/26/24 19:07 Blood/Venous Blood Culture - Preliminary
No Growth in 24 hours- Final report to follow
11/26/24 18:56 Blood/Venous Blood Culture - Preliminary
No Growth in 24 hours- Final report to follow
11/26/24 18:56 Nasal Swab Influenza Types A & B (JYOTHI) - Final
Negative for Influenza A & B, NAAT
Negative results must be combined with clinical observations
and patient history.
Nucleic Acid Amplification test (NAAT)performed on the
[employer] platform.
[2024-11-28 12:03] LABS: Glucose - Point of Care 117 mg/dl (70-99)
[2024-11-28 12:50] LABS: Blood Urea Nitrogen 33 mg/dl (9-20); Calcium 8.9 mg/dl (8.4-10.2); Carbon Dioxide 33 mmol/L (22-30); Chloride 100 mmol/L (98-107); Estimated Creatinine Clearance 85 ml/min; Glucose 129 mg/dl (70-99); Potassium 3.9 mmol/L (3.5-5.1); Sodium 137 mmol/L (135-145); eGFR > 60.00
[2024-11-28 12:52] LABS: % Basophils 0.3 % (0-2); % Immature Granulocytes 0.3 % (0-0.5); % Lymphocytes 13.8 % (20.5-51.1); % Monocytes 6.6 % (1.7-9.3); Absolute Eosinophils 0.6 10^3/uL (0-0.7); Absolute Lymphocytes 1.2 10^3/uL (1.2-3.4); Absolute Monocytes 0.6 10^3/uL (0.1-0.6); Absolute Neutrophils 6.4 10^3/uL (1.4-6.5); Hematocrit 39.4 % (39.0-52.0); Hemoglobin 11.9 g/dL (13.0-18.0); Mean Corp Hgb Conc. 30.2 g/dL (33.0-37.0); Mean Corpuscular Hgb 22.8 pg (27.0-31.0); Mean Corpuscular Volume 75.3 fL (80.0-94.0); Nucleated Red Blood Cells % 0 % (-); Platelet Count 139 10^3/uL (130-400); Red Blood Cell Count 5.23 10^6/uL (4.70-6.10); Red Cell Dist. Width 19.3 % (11.5-14.5); White Blood Cell Count 8.8 10^3/uL (4.8-10.8)
[2024-11-28 16:29] LABS: Glucose - Point of Care 121 mg/dl (70-99)
[2024-11-28] MEDS: FLOMAX 0.4 MG PO (21:00)
[2024-11-28] MEDS: ZYLOPRIM 100 MG PO (21:01)
[2024-11-28] MEDS: LIPITOR 10 MG PO (21:01)
[2024-11-28 22:47] LABS: Glucose - Point of Care 110 mg/dl (70-99)
[2024-11-29] VITALS (12 sets, daily range): BP systolic 107–126; BP diastolic 73–95; BMI 38.8
[2024-11-29] MEDS: ANCEF 10 IV (04:22)
--- NOTE | 2024-11-29 04:41 | PTCARENOTE ---
Patient taking off o2 throughout the entire night. Desatting to low 80s. Nc increased to 4-5L to recover.
pt swallowing pills w/o issues. tolerating iv abx. 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 left wound dressing intact. scds/chaka wraps in place. no gi/gu complaints, voiding via urinal. pt is turning himself in bed. left leg elevated on pillow but pt kicks
off. afebrile. denies pain.
bed alarm set for safety. call pedersen within reach. pt hoping to go 'home'.
[2024-11-29 04:56] LABS: Hematocrit 39.7 % (39.0-52.0); Mean Corp Hgb Conc. 30.2 g/dL (33.0-37.0); Mean Corpuscular Hgb 23.1 pg (27.0-31.0); Mean Corpuscular Volume 76.5 fL (80.0-94.0); Platelet Count 146 10^3/uL (130-400); Red Blood Cell Count 5.19 10^6/uL (4.70-6.10); Red Cell Dist. Width 19.2 % (11.5-14.5); White Blood Cell Count 6.9 10^3/uL (4.8-10.8)
[2024-11-29 05:05] LABS: Blood Urea Nitrogen 31 mg/dl (9-20); Calcium 8.9 mg/dl (8.4-10.2); Carbon Dioxide 31 mmol/L (22-30); Chloride 101 mmol/L (98-107); Estimated Creatinine Clearance 91 ml/min; Glucose 101 mg/dl (70-99); Potassium 3.7 mmol/L (3.5-5.1); Sodium 140 mmol/L (135-145); eGFR > 60.00
[2024-11-29 08:40] LABS: Glucose - Point of Care 95 mg/dl (70-99)
--- NOTE | 2024-11-29 09:11 | W.PN.HOSP.TC ---
Today's Communication/Plan
-
see A/P
Assessment / Plan
Assessment / Plan
A/P:
# Severe Sepsis POA secondary to presumed Left Lower Extremity Cellulitis
No PNA on CXR, UA essentially negative, blood cultures so far negative
vanco/zosyn deescalated to Ancef per ID
Cont elevation and compression as tolerated
Appreciate ID and wound care
# acute hypoxic resp failure POA, suspect in the setting of underlying pulmonary hypertension, possibly hypoventilation when he was lethargic
# Severe chronic pulm HTN per CXR
10L NC -> 6L NC, cont to wean O2 as tolerated, pt does not appear to be on home O2
Appreciate pulm input
# Acute Kidney , resolved
SCr 1.8 on admission -> 1.1 today; baseline creat ~1.2
Cont to hold torsemide, metformin, metolazone
follow creat
# Chronic HFpEF, not in acute exacerbation
diuretics on hold
follow weights, I/Os
# Paroxysmal Atrial Fibrillation
Continue metoprolol for rate control with hold parameters
Continue Eliquis for anticoagulation
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
Patient report wheelchair bound at baseline
SPL eval
PT/OT recc SNF
# Diabetes Mellitus, Type II
Hold metformin
Monitor sugars and continue coverage insulin
# Hyperlipidemia
Continue atorvastatin
# TBI with Intellectual Disability
# Bipolar Disorder
Continue Depakote
# BPH
Continue tamsulosin
# Gout
Continue allopurinol and colchicine
# Morbid Obesity due to Excess Calories
Affects all aspects of care
DVT proph: Eliquis
Code Status: DNR per [facility] Paperwork
Anticipated Discharge: 24 - 48 hours
Subjective/Interval History
-
Date of Service: November 29, 2024
Objective Data
-
Labs:
Laboratory Results
11/29/24
04:27
WBC 6.9
Hgb 12.0 L
Hct 39.7
Plt Count 146
Sodium 140
Potassium 3.7
Chloride 101
Carbon Dioxide 31 H
BUN 31 H
Creatinine 1.1
Glucose 101 H
Calcium 8.9
Vital Signs:
Vital Signs
Temp Pulse Resp BP Pulse Ox
36.7 C 67 26 122/95 98
11/29/24 07:58 11/29/24 06:00 11/29/24 06:00 11/29/24 06:00 11/29/24 06:00
I&O
11/28/24 11/29/24 11/30/24
06:59 06:59 06:59
Intake Total 1540 / 1540 240 / 240
Output Total 2600 / 2600 1075 / 1075
Balance -1060 / -1060 -835 / -835
Review of Systems
-
History Source: Patient
All other systems: Reviewed and negative
Physical Exam
-
General: Well Developed, Well Nourished and Comfortable
HEENT: Normocephalic, Atraumatic and Oxygen (6L)
Respiratory: Clear to Auscultation and Non Labored Respirations; Negative Accessory Resp Muscle Use
Cardiac: Regular Rhythm and S1/S2
GI: Soft, Nontender, Nondistended and Normal Bowel Sounds
Musculoskeletal: No Clubbing, No Cyanosis and Other (left leg erythema, see wound care note )
Neuro: Awake and Alert
Psych: Calm
Data Reviewed
-
Labs: Labs Reviewed by me
[2024-11-29] MEDS: NOVOLOG FLEXPEN-LOW RESISTANCE SC ×2 (09:40→13:34)
[2024-11-29] MEDS: COLCHICINE 0.6 MG PO (09:40)
[2024-11-29] MEDS: ZYLOPRIM 300 MG PO (09:40)
[2024-11-29] MEDS: DEPAKOTE (12 HR RELEASE) 125 MG PO ×3 (09:41→21:49)
[2024-11-29] MEDS: DESENEX/MITRAZOL/ZEASORB 1 APPLIC TOPICAL ×2 (09:41→20:44)
[2024-11-29] MEDS: LOPRESSOR 25 MG PO (09:41)
[2024-11-29] MEDS: ELIQUIS 5 MG PO ×2 (09:41→20:44)
[2024-11-29] MEDS: HYDROPHOR 1 APPLIC TOPICAL (09:42)
--- NOTE | 2024-11-29 09:44 | W.PN.ID1 ---
Date of Service
Date of Service: November 29, 2024
Today's Communication
- compression and elevation as tolerated
- start linezolid 600 mg PO BID x5 more days
- stable for dc from ID persepctive
Assessment / Plan
Assessment and Plan:
Chronic wound
Secondary Cellulitis
XENIA - improving
DM2 under good control
Bipolar on valproic acid
Gout
- blood cultures x2 in progress
- wound culture MRSA and strep in moderate amounts
- compression and elevation as tolerated
- start linezolid 600 mg PO BID x5 more days
- stable for dc from ID persepctive
Pulmonary HTN
- appears to be a new diagnosis - suggest outpatient follow up with pulmonary
Chief Complaint
-: Fever and Cellulitis
Subjective / Review of Systems
afebrile
bp stable
Vital Signs / Physical Exam
Vital Signs
Vital Signs
Temp Pulse Resp BP Pulse Ox
98.1 F 85 23 121/90 96
11/29/24 07:58 11/29/24 09:30 11/29/24 09:30 11/29/24 08:00 11/29/24 09:30
Physical Exam
Constitutional: No Acute Distress
Cardiovascular: Regular Rate and S1/S2; Negative Murmur or Rub
Pulmonary: Clear and Symmetric; Negative Wheezes or Rales
Gastrointestinal: Soft, Non Tender, Non Distended and Normal Bowel Sounds
Skin: Warm, Dry and Rash (mild residual erythema); Negative Jaundice
Objective Data
Lab Data
Lab Results
11/29/24 04:27
11/29/24 04:27
Estimated Creat Clear 91 ml/min 11/29/24 04:27
Lactic Acid 1.5 mmol/L (0.7-2.0) 11/26/24 18:57
Total Bilirubin 1.5 mg/dl (0.2-1.3) H 11/26/24 18:56
AST 14 U/L (17-59) L 11/26/24 18:56
ALT < 10 U/L (0-50) 11/26/24 18:56
Alkaline Phosphatase 61 U/L (38-126) 11/26/24 18:56
Most recent labs reviewed.
Wound/abscess/other Cult Final 11/29/24-0907
Moderate Staph aureus MRSA
Moderate Group G Streptococcus*
Moderate Diptheroids
*Group G Streptococcus is susceptible to ampicillin,
penicillin, cefazolin, and vancomycin, but may be resistant
to clindamycin and/or erythromycin. If clindamycin or
erythromycin is being considered for treatment (i.e. patient
with penicillin allergy) please notify the Microbiology
Laboratory within 72 hours if antibiotic sensitivity testing
is needed.
Isolation Precautions Required
Organism 1 Staph aureus MRSA
1. Staph aureus MRSA
M.I.C. RX
--------- ---
Amoxicillin/Potas. Clavulanate >4/2 R
Ampicillin >8 R
Clindamycin >4 R
Gentamicin <=4 S
Erythromycin >4 R
Levofloxacin >4 R
Oxacillin >2 R
Tetracycline >8 R
Trimethoprim/Sulfamethoxazole 2/38 S
Vancomycin 2 S
Micro Results:
11/26/24 20:30 Wound Culture - Final
Leg - Left Staph aureus MRSA
Group G Streptococcus
Gram Stain - Final
11/26/24 19:07 Blood Culture - Preliminary
Blood/Venous No Growth in 48 hours- Final report to follow
11/26/24 18:56 Blood Culture - Preliminary
Blood/Venous No Growth in 48 hours- Final report to follow
11/27/24 10:29 Blood Culture - Preliminary
Blood/Venous No Growth in 24 hours- Final report to follow
11/26/24 19:07 Urine Culture - Final
Urine NO GROWTH
11/27/24 04:16 MRSA Screen - Final
Nose No Methicillin Resistant Staphylococcus aureus isolated.
11/26/24 18:56 Influenza Types A & B (JYOTHI) - Final
Nasal Swab Negative for Influenza A & B, NAAT
Negative results must be combined with clinical observations
and patient history.
Nucleic Acid Amplification test (NAAT)performed on the
[employer] platform.
Care Review
Plan reviewed with: Physician (Ce nagel)
--- NOTE | 2024-11-29 10:36 | W.PN.PUL3 ---
Today's Communication / Plan
-
- Continue supplemental oxygen, keep saturation above 90 to 92%
- Follow-up two-view chest x-ray today
- Speech therapy evaluation
Assessment
-
64-year-old man with past medical history noted. Admitted to the hospital with lethargy, fevers. Found to be septic with left lower extremity cellulitis. Also found to be hypoxemic. We were consulted for hypoxemia. Of note, patient has been on
Eliquis at the long-term due to history of atrial fibrillation. No prior history of pulmonary disease. Noted on the chart patient is hypercapnic since 2019 with RV dysfunction on echocardiogram.
Acute hypoxemic respiratory failure-suspect due to pulmonary hypertension in the setting of sepsis. Likely also related to chronic hypoventilation.
History of pulmonary hypertension:
Suspect due to chronic untreated hypercapnia-echocardiogram 02/19/2020 with dilated right ventricular size.
Chronic hypercapnic respiratory failure: Likely obesity hypoventilation syndrome.
ABG 11/23/2020: 7.44/62/76.
Sepsis due to lower extremity cellulitis left
Acute kidney injury
Conditions present prior admission:
Chronic heart failure with preserved ejection fraction
Echocardiogram 02/19/2020: Mild LVH. Dilated right ventricle with preserved contractility.
History of paroxysmal atrial fibrillation
History of CVA with left hemiparesis and dysarthria
Type 2 diabetes
Hyperlipidemia
TBI with intellectual disability/bipolar disorder
BPH
Gout
Morbid obesity
Chronic hypercapnic respiratory failure
DNR
-
Assessment and plan:
Patient admitted for sepsis due to lower extremity cellulitis and altered mental status.
#1. Hypoxic respiratory failure, suspect Chronic, pulmonary hypertension. Multifactorial related to underlying severe pulmonary hypertension, suspect concomitant CHRISTIANO and OHS.
- Currently on 3 L, saturating 98%
- Reported mild cough while he was eating. Recommend speech therapy evaluation, follow-up chest x-ray two-view to evaluate for any infiltrates.
- Patient declines any CPAP or BiPAP therapy. Found to be hypoxemic in the emergency room. Chest x-ray without acute infiltrate.
- Chronically anticoagulated hence pulmonary embolism is unlikely
- Patient does have history of pulmonary hypertension with RV dysfunction-suspect due to chronic hypercapnic respiratory failure based on ABG from 2020. Needs additional workup for pulmonary hypertension as outpatient which will include sleep
study, overnight oximetry, pulmonary function testing, 6-minute walk test and possibly VQ scan.
- Avoid sedative medications. Assess for home oxygen prior to discharge. If no daytime hypoxia noted, patient will need an overnight oximetry evaluation prior to discharge
Continue antibiotics for cellulitis-per primary team.
Follow renal function and electrolytes
-
Will continue to follow-up
Total time spent on this consultation/encounter __43__ minutes which includes review of history, physical exam, medications, laboratory data, personal review of imaging, extensive review of outpatient records, discussion with care team and
respiratory therapy.
Subjective Data
-
Date of Service:
Date of Service: November 29, 2024
Chief Complaint: Pulmonary Follow Up (Hypoxemia)
Subjective:
Patient comfortably sitting in bed, reports mild cough.
Review of Systems
Genitourinary: Other (No new symptoms reported.)
Objective Data
Data Reviewed
Vital Signs / I&O / Oxygen:
Vital Signs
Temp Pulse Resp BP Pulse Ox
98.1 F 85 23 121/90 96
11/29/24 07:58 11/29/24 09:30 11/29/24 09:30 11/29/24 08:00 11/29/24 09:30
Intake and Output
11/28/24 11/29/24 11/30/24
06:59 06:59 06:59
Intake Total 1540 / 1540 240 / 240
Output Total 2600 / 2600 1075 / 1075
Balance -1060 / -1060 -835 / -835
SaO2 96
Nasal Cannula flow liters per 6
minute
Physical Exam
General: Comfortable
HEENT: Normocephalic
Cardiovascular: S1-S2
Respiratory: Clear and Non-Labored Respirations
GI: Soft and Non Distended
Neurology: Awake, Alert and Other (Dysarthria-baseline)
Skin: Other (Left lower extremity with chronic changes-erythema)
Labs/Micro/Reports
Lab Data
11/29/24 04:27
11/29/24 04:27
Microbiology
11/27/24 10:29 Blood/Venous Blood Culture - Preliminary
No Growth in 48 hours- Final report to follow
11/26/24 20:30 Leg - Left Wound Culture - Final
Staph aureus MRSA
Group G Streptococcus
11/26/24 20:30 Leg - Left Gram Stain - Final
11/26/24 19:07 Blood/Venous Blood Culture - Preliminary
No Growth in 48 hours- Final report to follow
11/26/24 18:56 Blood/Venous Blood Culture - Preliminary
No Growth in 48 hours- Final report to follow
11/26/24 19:07 Urine Urine Culture - Final
NO GROWTH
11/27/24 04:16 Nose MRSA Screen - Final
No Methicillin Resistant Staphylococcus aureus isolated.
11/26/24 18:56 Nasal Swab Influenza Types A & B (JYOTHI) - Final
Negative for Influenza A & B, NAAT
Negative results must be combined with clinical observations
and patient history.
Nucleic Acid Amplification test (NAAT)performed on the
[employer] platform.
[2024-11-29 13:11] LABS: Glucose - Point of Care 139 mg/dl (70-99)
[2024-11-29] MEDS: ZYVOX 600 MG PO ×2 (13:35→20:44)
--- NOTE | 2024-11-29 17:00 | PTCARENOTE ---
Patient was on 5L o2 this AM, weaned off o2 today and now on room air. Spo2 92-96%. Patient denies any SOB. Lungs coarse and diminished. Patient has dry non-productive cough. Using urinal independently and calling for RN appropriately. BA on
bed. Wound care on LLE done this afternoon. Patient very anxious to go back to [place].
[2024-11-29 17:20] LABS: Glucose - Point of Care 160 mg/dl (70-99)
[2024-11-29] MEDS: NOVOLOG FLEXPEN-LOW RESISTANCE 1 UNITS SC (18:05)
[2024-11-29 21:26] LABS: Glucose - Point of Care 168 mg/dl (70-99)
[2024-11-29] MEDS: LIPITOR 10 MG PO (21:49)
[2024-11-29] MEDS: FLOMAX 0.4 MG PO (21:49)
[2024-11-29] MEDS: ZYLOPRIM 100 MG PO (21:49)
[2024-11-30] VITALS (9 sets, daily range): BP systolic 86–120; BP diastolic 55–88; BMI 38.6
--- NOTE | 2024-11-30 02:53 | PTCARENOTE ---
Assumed care for patient overnight, received report from dayshift RN. Pt AAOx1 disoriented to time and place. Pt has garbled speech and slow speech. A-flutter on the monitor HR 65. Pt desatting to 83% on room air. Placed initially on 2L NC. Pt is
currently on 4L NC. Pt constantly taking of NC and states 'I don't need this'. Pt calmed down and reeducated. Pt 93% on 4L currently. Pt has a frequent dry cough. Pt able to take oral meds with no issues. Pt utilizing the call pedersen appropriately.
Call pedersen within reach.
[2024-11-30 06:36] LABS: Hematocrit 40.3 % (39.0-52.0); Hemoglobin 12.2 g/dL (13.0-18.0); Mean Corp Hgb Conc. 30.3 g/dL (33.0-37.0); Mean Corpuscular Hgb 22.8 pg (27.0-31.0); Mean Corpuscular Volume 75.2 fL (80.0-94.0); Mean Platelet Volume 11.1 fL (7.4-10.4); Platelet Count 154 10^3/uL (130-400); Red Blood Cell Count 5.36 10^6/uL (4.70-6.10); Red Cell Dist. Width 18.7 % (11.5-14.5); White Blood Cell Count 7.4 10^3/uL (4.8-10.8)
[2024-11-30 06:52] LABS: Blood Urea Nitrogen 30 mg/dl (9-20); Carbon Dioxide 29 mmol/L (22-30); Chloride 101 mmol/L (98-107); Estimated Creatinine Clearance 91 ml/min; Glucose 106 mg/dl (70-99); Potassium 3.9 mmol/L (3.5-5.1); Sodium 140 mmol/L (135-145); eGFR > 60.00
--- NOTE | 2024-11-30 08:27 | W.PN.HOSP.TC ---
Addendum entered and electronically signed by Giovana Encinas MD 11/30/24 14:26:
total DC time 40 min
According to RN who discussed with his snf nurses, the patient was supposed to be on oxygen, but he refuses to wear
Original Note:
Today's Communication/Plan
-
dispo planning, hopefully DC today
Assessment / Plan
Assessment / Plan
A/P:
# Severe Sepsis POA secondary to presumed Left Lower Extremity Cellulitis
No PNA on CXR, UA essentially negative, blood cultures so far negative
vanco/zosyn deescalated -> Ancef -> linezolid 600 mg PO BID x5 more days per ID
Cont elevation and compression as tolerated
Appreciate ID and wound care
# acute hypoxic resp failure POA, suspect in the setting of underlying pulmonary hypertension, possibly hypoventilation when he was lethargic
# Severe chronic pulm HTN per CXR
10L NC -> 5L NC, cont to wean O2 as tolerated, pt does not appear to be on home O2
Appreciate pulm input
Cleared for solid per SPL
# Acute Kidney , resolved
SCr 1.8 on admission -> 1.1 today; baseline creat ~1.2
Cont to hold torsemide, metformin, metolazone; could resume following discharge
follow creat
# Chronic HFpEF, not in acute exacerbation
diuretics on hold, could resume following discharge
follow weights, I/Os
# Paroxysmal Atrial Fibrillation
Continue metoprolol for rate control with hold parameters
Continue Eliquis for anticoagulation
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
Patient report wheelchair bound at baseline
SPL cleared for solid and thin liquid (for some odd reason, SPL note only appeared on RN's screen and not on physician's screen)
PT/OT recc SNF
# Diabetes Mellitus, Type II
Hold metformin
Monitor sugars and continue coverage insulin
# Hyperlipidemia
Continue atorvastatin
# TBI with Intellectual Disability
# Bipolar Disorder
Continue Depakote
# BPH
Continue tamsulosin
# Gout
Continue allopurinol and colchicine
# Morbid Obesity due to Excess Calories
Affects all aspects of care
DVT proph: Eliquis
Code Status: DNR per [place] Paperwork
DW Pulm
DW RN, DW CM
DW sister on the phone
Anticipated Discharge: Today
Subjective/Interval History
-
Date of Service: November 30, 2024
Objective Data
-
Labs:
Laboratory Results
11/30/24
06:15
WBC 7.4
Hgb 12.2 L
Hct 40.3
Plt Count 154
Sodium 140
Potassium 3.9
Chloride 101
Carbon Dioxide 29
BUN 30 H
Creatinine 1.1
Glucose 106 H
Calcium 9.0
Vital Signs:
Vital Signs
Temp Pulse Resp BP Pulse Ox
36.4 C 80 29 101/88 92
11/30/24 03:00 11/30/24 06:00 11/30/24 06:00 11/30/24 06:00 11/30/24 06:00
I&O
11/29/24 11/30/24 12/01/24
06:59 06:59 06:59
Intake Total 240 / 240 1645 / 1645
Output Total 1075 / 1075 1685 / 1685
Balance -835 / -835 -40 / -40
Review of Systems
-
History Source: Patient
All other systems: Reviewed and negative
Physical Exam
-
General: Well Developed, Well Nourished and Comfortable
HEENT: Normocephalic, Atraumatic and Oxygen (6L)
Respiratory: Clear to Auscultation and Non Labored Respirations; Negative Accessory Resp Muscle Use
Cardiac: Regular Rhythm and S1/S2
GI: Soft, Nontender, Nondistended and Normal Bowel Sounds
Musculoskeletal: No Clubbing, No Cyanosis and Other (left leg erythema, see wound care note )
Neuro: Awake and Alert
Psych: Calm
Data Reviewed
-
Diagnostic Radiology: Image personally visualized and interpreted and Report Reviewed by me
Labs: Labs Reviewed by me
[2024-11-30 08:49] LABS: Glucose - Point of Care 93 mg/dl (70-99)
--- NOTE | 2024-11-30 09:55 | W.PN.ID1 ---
Date of Service
Date of Service: November 30, 2024
Today's Communication
- c/w linezolid 600 mg PO BID x7 more days
- stable for dc from ID perspective
Assessment / Plan
Assessment and Plan:
Chronic wound
Secondary Cellulitis
XENIA - improving
DM2 under good control
Bipolar on valproic acid
Gout
- blood cultures x2 in progress
- wound culture MRSA and strep in moderate amounts
- compression and elevation as tolerated
- c/w linezolid 600 mg PO BID x7 more days
- stable for dc from ID persepctive
Chief Complaint
-: Fever and Cellulitis
Subjective / Review of Systems
afebrile
bp stable
tolerating current therapies
Vital Signs / Physical Exam
Vital Signs
Vital Signs
Temp Pulse Resp BP Pulse Ox
97.8 F 80 24 107/80 95
11/30/24 07:20 11/30/24 08:00 11/30/24 08:00 11/30/24 08:00 11/30/24 09:43
Physical Exam
Constitutional: No Acute Distress
Cardiovascular: Regular Rate and S1/S2; Negative Murmur or Rub
Pulmonary: Clear and Symmetric; Negative Wheezes or Rales
Gastrointestinal: Soft, Non Tender, Non Distended and Normal Bowel Sounds
Skin: Warm, Dry and Rash (erythema persists today, mild on the distal leg, may be a bit worse given lack of compression of this area with increased edema since my last exam); Negative Jaundice
Objective Data
Lab Data
Lab Results
11/30/24 06:15
11/30/24 06:15
Estimated Creat Clear 91 ml/min 11/30/24 06:15
Lactic Acid 1.5 mmol/L (0.7-2.0) 11/26/24 18:57
Total Bilirubin 1.5 mg/dl (0.2-1.3) H 11/26/24 18:56
AST 14 U/L (17-59) L 11/26/24 18:56
ALT < 10 U/L (0-50) 11/26/24 18:56
Alkaline Phosphatase 61 U/L (38-126) 11/26/24 18:56
Most recent labs reviewed.
Micro Results:
11/26/24 19:07 Blood Culture - Preliminary
Blood/Venous No Growth in 72 hours- Final report to follow
11/26/24 18:56 Blood Culture - Preliminary
Blood/Venous No Growth in 72 hours- Final report to follow
11/27/24 10:29 Blood Culture - Preliminary
Blood/Venous No Growth in 48 hours- Final report to follow
11/26/24 20:30 Wound Culture - Final
Leg - Left Staph aureus MRSA
Group G Streptococcus
Gram Stain - Final
11/26/24 19:07 Urine Culture - Final
Urine NO GROWTH
11/27/24 04:16 MRSA Screen - Final
Nose No Methicillin Resistant Staphylococcus aureus isolated.
11/26/24 18:56 Influenza Types A & B (JYOTHI) - Final
Nasal Swab Negative for Influenza A & B, NAAT
Negative results must be combined with clinical observations
and patient history.
Nucleic Acid Amplification test (NAAT)performed on the
[employer] platform.
[2024-11-30] MEDS: NOVOLOG FLEXPEN-LOW RESISTANCE SC ×3 (09:58→16:54)
[2024-11-30] MEDS: LOPRESSOR 25 MG PO (09:58)
[2024-11-30] MEDS: ELIQUIS 5 MG PO (09:58)
[2024-11-30] MEDS: DEPAKOTE (12 HR RELEASE) 125 MG PO ×2 (09:58→16:57)
[2024-11-30] MEDS: COLCHICINE 0.6 MG PO (09:59)
[2024-11-30] MEDS: ZYLOPRIM 300 MG PO (09:59)
[2024-11-30] MEDS: ZYVOX 600 MG PO (09:59)
[2024-11-30] MEDS: DESENEX/MITRAZOL/ZEASORB 1 APPLIC TOPICAL (09:59)
[2024-11-30] MEDS: HYDROPHOR 1 APPLIC TOPICAL (09:59)
--- NOTE | 2024-11-30 11:36 | PTCARENOTE ---
Patient is currently on 4L o2 via mid flow. Spo2 92%-94%. Patient noncompliant with o2 and constantly is taking it off. Patient states 'I don't need this. I don't have any breathing problems.' Vital signs stable. Aflutter on monitor. HR 60-70's.
Patient wants to go back to [place].
--- NOTE | 2024-11-30 11:42 | CM ---
Pt will return to [facility] today.
Call report to 3rd floor nurse [phone], fax [phone].
Attempted calls to both sister and friend listed and left voicemails for return call.
[2024-11-30 12:49] LABS: Glucose - Point of Care 140 mg/dl (70-99)
--- NOTE | 2024-11-30 14:18 | W.DCSUMMARY ---
Discharge Summary
Discharge Data
Date of Admission: 11/26/24
Date of Discharge: 11/30/24
-
Pending Results: No
Hospital Course
Principal Diagnosis:
Severe Sepsis secondary to Left Lower Extremity Cellulitis
Acute Kidney , resolved
Chronic Diagnoses:�
Severe chronic pulmonary hypertension
Chronic hypoxic respiratory failure on oxygen, however patient refuses to wear
Chronic heart failure with preserved ejection fraction
Paroxysmal Atrial Fibrillation
Stroke with Left Hemiparesis and chronic dysarthria
Diabetes Mellitus, Type II
Hyperlipidemia
TBI with Intellectual Disability
Bipolar Disorder, on Depakote
Benign prostate hypertrophy, on tamsulosin
Gout, on allopurinol and colchicine
Morbid Obesity due to Excess Calories
Consultations:�
Infectious disease
Pulmonary
Procedures:�
None
Clinical course:�
This is a 64-year-old male, with past medical history as stated above, who presented with fever and lethargy, due to left leg cellulitis
Problem 1:
Severe Sepsis secondary to presumed 2/2 Left Lower Extremity Cellulitis.
His CXR was NAD, UA essentially negative, blood culture negative.
He received vancomycin and Zosyn on admission, and these were de-escalated to Ancef. He was discharged with linezolid 600 mg PO BID x4 days.
Problem 2:
Initially thought to be acute hypoxic respiratory failure, but this is likely chronic hypoxic respiratory failure on home O2.
Patient is not a reliable historian, he denied to home O2 use.
However, per discussion with his senior living nurses, he was supposed to be on oxygen, but he refuses to wear.
At the time of discharge, he was on 5 L nasal cannula, which he can continue or wean as tolerated at his senior living.
Problem 3:
Acute Kidney , resolved
His creatinine improved from 1.8 on admission to 1.1 which is at his baseline.
As for the rest of his medical problems, they were stable during his hospital stay.
Discharge Plan
-
Patient Disposition: Prison/SNF
Discharge Diagnosis/Procedures: Severe Sepsis secondary to presumed Left Lower Extremity Cellulitis;
Acute hypoxic respiratory failure suspect in the setting of underlying pulmonary hypertension and possibly hypoventilation;
Resolved acute kidney injury
Condition: Fair
Diet: As tolerated
Activity: As tolerated
Driving Restrictions: No driving
Blood Work: BMP in 1 week with your PCP
Wound Care: Wound Care Instructions
Left LE- Clean with normal saline or soap and water. Apply alginate and cover with foam dressing. Change daily.
Left Great Toe and Left Dorsal foot wounds- Apply Betadine daily
Mineral oil to dry skin on left LE
Compression with [place] to left leg daily
Follow up at wound care center call for an appointment.
Activity Restrictions/Additional Instructions:
Continue 5L NC at the senior living, wean as tolerated.
You may require at least 2 L NC O2 support going forward
Referrals:
Rusty Owen DO [Family Provider] - in less than 1 week
Tio Prater MD [Active] - in six weeks
Additional Discharge Medication Instructions: Continue Linezolid for 4 more days
Prescriptions:
New
linezolid 600 mg Tablet
600 mg PO BID 4 Days Qty: 8 0RF
Continued
atorvastatin 10 MG tablet
10 mg PO HS
acetaminophen 325 MG tablet
650 mg PO Q6HPRN PRN (Reason: temp>100, mild pain)
magnesium hydroxide [Milk of Magnesia] 30 ML suspension
30 ml PO DAILYPRN PRN (Reason: constipation)
Enema 135 ML enema
118 ml AK DAILYPRN PRN (Reason: if dulcolax ineffective in 24h)
allopurinol 300 MG tablet
300 mg PO DAILY
Eliquis 5 MG tablet
5 mg PO BID
metolazone 2.5 MG tablet
2.5 mg PO TUSA
torsemide 20 MG tablet
20 mg PO BID
ammonium lactate 1 APPLIC lotion
1 applic topical BID
potassium chloride [Klor-Con M20] 20 MEQ tablet,ER particles/crystals
20 meq PO BID
colchicine 0.6 MG tablet
0.6 mg PO DAILY
allopurinol 100 mg Tablet
100 mg PO HS
dextrose [Gluco Burst] 40 % Gel
15 g PO DAILY PRN (Reason: bs <60)
bisacodyl [Dulcolax (bisacodyl)] 10 mg Suppository
10 mg AK DAILY PRN (Reason: constipation)
glucagon HCl [Glucagon (HCl) Emergency Kit] 1 mg Recon Soln
1 mg IM PRN PRN (Reason: hypoglycemia)
ferrous sulfate [FeroSul] 325 mg (65 mg iron) Tablet
325 mg PO DAILY Qty: 0 0RF
metformin 1,000 mg Tablet
1,000 mg PO BID@0800,1700 Qty: 0 0RF
calcium carbonate [Calcium 600] 600 mg calcium (1,500 mg) Tablet
600 mg PO DAILY
tamsulosin 0.4 mg capsule
0.4 mg PO HS
divalproex 125 mg tablet,delayed release (DR/EC)
125 mg PO TID
niacin 500 mg Tablet
500 mg PO BID
metoprolol tartrate 25 mg Tablet
25 mg PO DAILY
Rx Instructions:
Hold for SBP < 100 or Heart Rate <60
cholecalciferol (vitamin D3) 25 mcg (1,000 unit) Tablet
25 mcg PO DAILY
Discharge Orders:
Discharge Patient (As Directed); Ordered 11/30/24
Ordered By: Giovana Encinas
Discharge Date and Time
Print Language: EQUATORIAL GUINEAN
[2024-11-30 17:05] LABS: Glucose - Point of Care 142 mg/dl (70-99)
== END 2024-11-30 18:14 | DRG 871 ==
LOC: IMU 22:07
PROVIDERS: Internal Medicine; Physician Assistant Medical; Student in an Organized Health Care Education/Training Program; ADMITTING PHYSICIAN Hospitalist; ATTENDING PHYSICIAN Internal Medicine; CONSULT PHYSICIAN Internal Medicine Critical Care Medicine; CONSULT PHYSICIAN Internal Medicine Infectious Disease; EMERGENCY PHYSICIAN Emergency Medicine; FAMILY PHYSICIAN Internal Medicine
DX: A41.9 Sepsis, unspecified organism (principal); J96.21 Acute and chronic respiratory failure with hypoxia; L03.116 Cellulitis of left lower limb; I50.32 Chronic diastolic (congestive) heart failure; I69.354 Hemiplegia and hemiparesis following cerebral infarction affecting left non-dominant side; N17.9 Acute kidney failure, unspecified; R65.20 Severe sepsis without septic shock; I27.20 Pulmonary hypertension, unspecified; I11.0 Hypertensive heart disease with heart failure; I48.0 Paroxysmal atrial fibrillation; R47.1 Dysarthria and anarthria; E11.51 Type 2 diabetes mellitus with diabetic peripheral angiopathy without gangrene; E11.649 Type 2 diabetes mellitus with hypoglycemia without coma; F79 Unspecified intellectual disabilities; F31.9 Bipolar disorder, unspecified; N40.0 Benign prostatic hyperplasia without lower urinary tract symptoms; M10.9 Gout, unspecified; B95.62 Methicillin resistant Staphylococcus aureus infection as the cause of diseases classified elsewhere; Z66 Do not resuscitate; Z79.84 Long term (current) use of oral hypoglycemic drugs; Z87.820 Personal history of traumatic brain injury; Z79.01 Long term (current) use of anticoagulants
CPT/HCPCS: 71045; 71046; 80048; 80053; 80164; 80202; 81003; 81015; 82962; 83036; 83605; 83735; 85025; 85027; 87040; 87070; 87077; 87086; 87147; 87186; 87205; 87502; 87811; 92610; 93005; 93306; 96365; 96366; 96367; 97163; 97167; 97530; 97535; 99285; Q9950

== ENCOUNTER 2025-01-25 21:28 | Inpatient (IN) | payer MEDICARE, OTHER, SELFPAY ==
[2025-01-25] VITALS (8 sets, daily range): BP systolic 82–146; BP diastolic 60–114; BMI 39.3; BMI 38.9
[2025-01-25 19:09] LABS: Hematocrit 43.1 % (39.0-52.0); Hemoglobin 12.9 g/dL (13.0-18.0); Mean Corp Hgb Conc. 29.9 g/dL (33.0-37.0); Mean Corpuscular Volume 77.9 fL (80.0-94.0); Nucleated Red Blood Cells % 0 % (-); Platelet Count 184 10^3/uL (130-400); Red Cell Dist. Width 20.3 % (11.5-14.5)
--- NOTE | 2025-01-25 19:17 | ED.GENMED ---
History of Present Illness
General
Chief Complaint: Fever
Source: ambulance crew
Exam Limitations: clinical condition
Time Seen by Provider: 01/25/25 18:55
History of Present Illness
History of Present Illness:
64-year-old man was sent in for fever and hypoxia. Apparently does not wear his oxygen. Patiently complains of being thirsty. Symptoms started apparently at some point today. Was given Tylenol prior to ER arrival. Patient has no other specific
complaints
Past History
Past History
ED Past Medical History: Arrthythmia (atrial fib), CHF, COPD, CVA, HTN, Hypercholesterolemia, NIDDM, Psychiatric (Anxiety), Other (Traumatic brain injury with left hemiparesis, morbid obesity, gout, cellulitis, Sepsis, PVD, PNA, Ulcer left foot,)
and Other (PNA, Sleep apnea, PVD)
ED Past Surgical History: None
Social History
Tobacco: Non-smoker
Alcohol: None
Drug: None
Personal: Single
Living: [facility]
Employment: Disabled
Family History
Family History: Other and Unable to obtain
Review of Systems
Review of Systems
All Other Systems: Not applicable
Respiratory: Reports no symptoms
Cardiac: Reports no symptoms
ABD/GI: Reports no symptoms
Phy Exam
Physical Exam
Physical Exam:
GENERAL: Alert chronically ill-appearing. Mildly tachypneic. Mildly anxious.
EYE: Orbits normal.
NECK: Supple, no significant adenopathy.
ENT: Pharynx without erythema. Dry mouth
CARDIAC: Tachycardic and regular no murmur
LUNGS: Mild tachypnea. Occasional rhonchi
ABDOMEN: Soft, without focal tenderness or distention
NEUROLOGICAL: Alert and oriented , grossly non-focal
SKIN: Warm and dry, no rash or lesion, no discoloration, skin intact.
MUSCULOSKELETAL: Cellulitis left lower extremity with erythema warmth. Old metatarsal surgery.
PSYCH: Anxious.
Sepsis
Sepsis Screening
Sepsis Assessment: Severe Sepsis
Sepsis Screening: Lactate >2mmol/L and Worsening O2 Saturation
Sepsis Screen
Sepsis Screen: Severe Sepsis
Date: 01/27/25
Time: 16:01
Course
Orders/Labs/Results
Orders:
Orders
01/25/25 Dinner
1800 calorie (15 carb) Diabetic
At Your Request: Limited Participation
01/25/25 18:54
Electrocardiogram (*1) Urgent
Reason for Study: Other
Other Reason for Exam: Possible Sepsis
Cardiac Monitoring- Treatment ONCE
EKG- Treatment ONCE
IV Insert/Care/Rem.- Treatment PRN
Straight cath- Treatment ONCE
CR Chest Portable - 1 View Urgent
Comment:
Reason For Exam: sob
Reason Study Needs to be Portable: Patient Unstable
O2 Therapy [RESP] Urgent
Titrate/Wean O2 to maintain O2 sat greater than (%): 93
Special Instructions: TO MAINTAIN CONTINUOUS O2 SATS > OR = 93%
Pulse Ox/cont/shift [RESP] Urgent
Quantity: 1
Special Instructions: CONTINUOUS
01/25/25 18:59
Complete Blood Count/With Diff Urgent
Comprehensive Metabolic Panel Urgent
Lactic Acid Q4H
Comment: ON ICE, CANCEL 2ND ORDER IF FIRST LACTIC ACID LEVEL <2
Urinalysis Reflex To Culture Urgent
Date Specimen was Collected: 01/25/25
Time Specimen was Collected: 18:54
Urine Microscopic Reflex Cult Urgent
Blood Culture Q20M
[place] Source: Blood/Venous
Specimen Description:
Comment: Urgent from separate sites. If patient screens positive for possible sepsis
Blood Culture Q20M
[place] Source: Blood/Venous
Specimen Description:
Comment: Urgent from separate sites. If patient screens positive for possible sepsis
Urine Culture Urgent
[place] Source: U
Specimen Description:
Date Specimen was Collected: 01/25/25
Time Specimen was Collected: 18:54
01/25/25 19:01
IV Insert/Care/Rem.- Treatment PRN
0.9% Sodium Chloride 1000 ml [Nss] 1,000 ml IV BOLUS
Piperacillin/Tazo 4.5 Gram [Zosyn] 4.5 gram in 100 ml IV NOW
Vancomycin [Vancocin] 2,000 mg 0.9% Sodium Chloride 500 ml [Nss] 500 ml IV NOW
01/25/25 19:06
COVID-19 Antigen Urgent
Source: Nasal Swab
Influenza A+B Rapid Molecular Urgent
[place] Source: Nasal Swab
Specimen Description:
01/25/25 19:29
Vancomycin [Vancocin] 2,000 mg 0.9% Sodium Chloride 500 ml [Nss] 500 ml IV NOW
01/25/25 21:02
Admit/Transfer Patient As Directed
Co-Sign Provider:
Level of Care: Inpatient admission
Assign to:: IMU- Intermediate Care
Physician / Group: Herman
Diagnosis: cellulitis
Reason for Hospitalization: cellulitis with sepsis
Expected length of stay greater than two midnights?: Yes
ELOS- Estimated Length of Stay in days: 2
I certify the patient meets the requirements for IP care: Yes
01/25/25 21:05
Code Status As Directed
Resuscitation Status: Full Code
01/25/25 21:10
0.9% Sodium Chloride 1000 ml [Nss] 1,000 ml IV NOW STA
01/25/25 21:15
PRN Pain Medication Management As Directed
May give lesser potent ordered pain med per pt: Yes
preference::
Protocol:: Medication orders for pain may be administered in a
manner that supports deferring to patient preference
when the pt is:
- Requesting an ordered lesser potent pain medication.
Least to most potent pain medications are defined
as: acetaminophen < NSAID < tramadol < opioids
(morphine, oxycodone, hydromorphone).
- Requesting a lesser dose of the same medication IF
ORDERED.
- Requesting a less intrusive route of administration
if both routes are prescribed by the provider (PO <
IV).
01/25/25 21:16
CR Foot - Left 2 Views Stat
Comment:
Reason For Exam: cellulitis, rule out foreign body
01/25/25 21:17
Code Status As Directed
Resuscitation Status: Do not resuscitate
Based on pt advanced directive or healthcare POA form: Yes
01/25/25 22:19
Acetaminophen [Tylenol] 650 mg PO Q6HPRN PRN temp>100, mild pain
Bisacodyl [Dulcolax] 10 mg RECTAL DAILY PRN constipation
HYDROmorphone [Dilaudid] 0.5 mg IV Q4HPRN PRN
Magnesium Hydroxide [Milk of Magnesia] 30 ml PO DAILYPRN PRN constipation
Ondansetron Injectable [Zofran] 4 mg IV Q6HPRN PRN
Oxycodone [Roxicodone] 5 mg PO Q4HPRN PRN
Phosphate Enema [Fleet Phosphate Enema-Adult] 118 ml RECTAL DAILYPRN PRN if dulcolax ineffective in 24h
Tamsulosin [Flomax] 0.4 mg PO HS
VANCOMYCIN Pharmacy to Dose [VANCOCIN Pharmacy to Dose] 1 each Pharmacy To Prepare [Call Pharmacy To Prepare] 0 ml IV PER PROTOCOL
01/25/25 22:19
VTE Contraindication Routine
VTE Mechanical Device Contraindication: Medical Contraindication
Pharmocologic Contraindication: Medical Contraindication
Activity As Directed
Activity Level: With Assistance
Bedside Glucose Monitoring As Directed
Frequency: AC&HS
Vital Signs As Directed
Frequency: Per unit guidelines
01/25/25 23:00
Allopurinol [Zyloprim] 100 mg PO HS
Atorvastatin [Lipitor] 10 mg PO HS
Divalproex Delayed Rel. 12 Hr [Depakote (12 Hr Release)] 125 mg PO TID
01/26/25 01:00
Cefepime HCl [Maxipime] 2,000 mg IV Q12H
01/26/25 05:43
Basic Metabolic Panel IN AM
Complete Blood Count/No Diff IN AM
Hemoglobin A1c [Glycohemoglobin (HgbA1c)] IN AM
Magnesium IN AM
01/26/25 07:30
Insulin Aspart Corrective Mod [Novolog Flexpen-Moderate Resistance] See Protocol SC AC
01/26/25 08:00
Allopurinol [Zyloprim] 300 mg PO DAILY
Apixaban [Eliquis] 5 mg PO BID
Colchicine 0.6 mg PO DAILY
Metoprolol [Lopressor] 25 mg PO DAILY
Niacin Time Release [Niaspan Time Release] 500 mg PO BID
01/27/25 11:00
DC Protocol for Telemetry ONCE
Abnormal Lab Results
01/25/25
18:59
WBC 14.0 H 10^3/uL
(4.8-10.8)
Hgb 12.9 L g/dL
(13.0-18.0)
MCV 77.9 L fL
(80.0-94.0)
MCH 23.3 L pg
(27.0-31.0)
MCHC 29.9 L g/dL
(33.0-37.0)
RDW 20.3 H %
(11.5-14.5)
Abs Immat Gran (auto) 0.1 H 10^3/uL
(0-0.05)
Absolute Neuts (auto) 12.2 H 10^3/uL
(1.4-6.5)
Absolute Lymphs (auto) 0.9 L 10^3/uL
(1.2-3.4)
Absolute Monos (auto) 0.7 H 10^3/uL
(0.1-0.6)
Neutrophils % 87.6 H %
(42.2-75.2)
Lymphocytes % 6.5 L %
(20.5-51.1)
Carbon Dioxide 31 H mmol/L
(22-30)
BUN 46 H mg/dl
(9-20)
Creatinine 1.6 H mg/dL
(0.7-1.3)
Glucose 200 H mg/dl
(70-99)
Ur Occult Blood Reflex 2+ A
(Negative)
Leukocyte Esterase Rfl 1+ A
(Negative)
Urine RBC 3-6 A /HPF
(0-2)
Urine WBC (Reflex) 16-20 A /HPF
(0-5)
Urine Bacteria (Reflex) Moderate A
(Negative)
Urine Albumin (Reflex) 3+ A
(Neg - Trace)
01/25/25 18:59
01/25/25 18:59
Vital Signs
Initial and Last Documented VS:
Initial Vital Signs
Temp Pulse Resp BP Pulse Ox
103.6 F H 110 36 131/71 93
01/25/25 19:15 01/25/25 19:15 01/25/25 19:15 01/25/25 19:15 01/25/25 19:15
Last Documented Vital Signs
Temp Pulse Resp BP Pulse Ox
98.1 F 67 22 102/74 93
01/27/25 07:05 01/27/25 15:45 01/27/25 15:45 01/27/25 15:00 01/27/25 15:45
MDM/Problems Addressed
Differential Diagnosis Includes:
Viewed. Most likely source of sepsis is his leg. This was an issue in November. Workup in progress. Fluids antibiotics. Currently oxygenating when he keeps his oxygen on.
*Pulse Oximetry
SaO2: 93
Nasal Cannula flow liters per minute: 6
Oxygen Mode of Delivery: Simple mask
Patient hypoxic: yes
*EKG
Interpreted by ED Provider?: Yes
Interpretation: abnormal
Comparison EKG: changes noted
Heart Rate: 105
Rate: tachycardiac
Rhythm: atrial flutter
Waterproof: normal axis
Interval: long QT
QRS Pattern: normal QRS
Ischemia: non-specific ST changes
*Head Of Drama Interpretation
Rate: tachycardiac
Interpretation: abnormal
Heart Rate: 104
Rhythm: atrial flutter
*Critical Care Note
Total Time (30-74mins, 75-104mins- exclusive of procedures): 45
Update Note
Update Note:
I did place a call to the sister. No answer.
ED Attending Note
-
Portions of this chart may have been created with voice recognition software.� Occasional wrong word or��sound alike� substitutions may have occurred due to the inherent limitations of voice recognition software.
Discharge Plan
Departure
Patient Disposition: Admit
Date of Disposition: 01/25/25
Time of Disposition: 20:10
Presentation/result/management discussed w/ accepting MD/DO: Hospitalist
Discharge Problem:
Sepsis likely secondary to cellulitis, Hypoxia. History of chronic hypoxia, Atrial flutter, Dehydration/renal insufficiency
Interventions
Interventions:
*Risk Screen - Suicide Last Done: 01/25/25 18:54
*General Assessment Last Done: 01/25/25 18:54
*Neglect/Abuse Screening Last Done: 01/25/25 18:54
*ED COVID-19 Vaccine History Last Done: 01/25/25 18:54
*Nursing Disposition Last Done: 01/25/25 22:34
ED- Neurological Assessment Last Done: 01/25/25 19:20
ED-Skin Assessment Last Done: 01/25/25 19:20
Discharge Date and Time
Discharge Date/Time: 01/25/25 22:34
[2025-01-25 19:18] LABS: Urine Character Clear (Clear)
[2025-01-25 19:30] LABS: COVID-19 Antigen Negative (Negative)
[2025-01-25 19:32] LABS: ALT (SGPT) < 10 U/L (0-50); AST (SGOT) 24 U/L (17-59); Albumin 3.8 g/dl (3.5-5.0); Alkaline Phosphatase 43 U/L (38-126); Blood Urea Nitrogen 46 mg/dl (9-20); Calcium 9.1 mg/dl (8.4-10.2); Carbon Dioxide 31 mmol/L (22-30); Chloride 102 mmol/L (98-107); Estimated Creatinine Clearance 63 ml/min; Glucose 200 mg/dl (70-99); Potassium 4.9 mmol/L (3.5-5.1); Sodium 140 mmol/L (135-145); Total Protein 7.6 g/dl (6.3-8.2); eGFR 48.41
[2025-01-25] MEDS: NSS 1000 IV (19:33)
[2025-01-25] MEDS: ZOSYN 100 IV (19:34)
[2025-01-25 19:51] LABS: Urine Squamous Cell >30 /LPF (Few); Urine White Cell 16-20 /HPF (0-5)
[2025-01-25] MEDS: VANCOCIN 540 MG IV (20:06)
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
[2025-01-25] MEDS: NSS 1000 ML IV (21:14)
--- NOTE | 2025-01-25 22:53 | PTCARENOTE ---
Received pt from ED via stretcher. Pt lethargic but arousable; oriented x3; slow speech. Left foot wound assessed and dressed; open and draining. small round open area on left calf; wound care completed. Old scar on sacrum noted; skin closed, no
open areas. Elbows dry but no open skin. CHG wipes completed. Swabbed mouth. on 6L NC with pulse ox at 93%. Lungs coarse. Bed alarm active; Call pedersen within reach.
[2025-01-25 23:03] LABS: Glucose - Point of Care 137 mg/dl (70-99)
--- NOTE | 2025-01-25 23:08 | PHA.VAN.IN ---
Assessment
- Assessment
Renal Function: SCR Appears Elevated from baseline
Maximum Temperature: 103.6
Minimum Temperature: 98.9
Plan
- Plan
Initial / Loading Dose: 2000mg-01/25
Maintenance Regimen: Dose by level as SrCr elevated from baseline
Monitoring: Random level at 0600 on 01/26
Pharmacokinetics Vancomycin I
- -
Patient Age: 64
Vancomycin Day #: 1
Indication: Skin And Soft Tissue
Requesting Provider: Dr. Sutton
Height / Weight:
Height 5 ft 10 in
Actual Weight 122.9 kg
- Vital Signs / Lab Results
Temp Pulse Resp BP Pulse Ox
98.9 F 98 24 94/77 93
01/25/25 22:45 01/25/25 21:15 01/25/25 21:15 01/25/25 21:08 01/25/25 22:59
Lab Results - Hematology
01/25/25
18:59
WBC 14.0 H
Lab Results - Chemistry
01/25/25
18:59
BUN 46 H
Creatinine 1.6 H
Estimated Creat Clear 63
Albumin 3.8
01/25/25 01/25/25
18:59 23:00
Lactic Acid 2.0 Cancelled
Lab Results - Urine
01/25/25
18:59
Urine Nitrite (Reflex) Negative
Leukocyte Esterase Rfl 1+ A
Urine WBC (Reflex) 16-20 A
Ur Squamous Epith Cells >30
Urine Bacteria (Reflex) Moderate A
Microbiology Results
01/25/25 19:06 Influenza Types A & B (JYOTHI) - Final
Nasal Swab Negative for Influenza A & B, NAAT
Negative results must be combined with clinical observations
and patient history.
Nucleic Acid Amplification test (NAAT)performed on the
[employer] platform.
[2025-01-25] MEDS: FLOMAX 0.4 MG PO (23:21)
[2025-01-25] MEDS: LIPITOR 10 MG PO (23:21)
[2025-01-25] MEDS: ZYLOPRIM 100 MG PO (23:21)
[2025-01-25] MEDS: DEPAKOTE (12 HR RELEASE) 125 MG PO (23:21)
[2025-01-26] VITALS (17 sets, daily range): BP systolic 87–121; BP diastolic 55–96; BMI 38.7
[2025-01-26] MEDS: MAXIPIME 1000 MG IV ×3 (05:35→18:25)
[2025-01-26] MEDS: STERILE WATER FOR INJECTION 10 ML IV ×3 (05:35→18:25)
[2025-01-26 06:20] LABS: Blood Urea Nitrogen 39 mg/dl (9-20); Calcium 8.5 mg/dl (8.4-10.2); Carbon Dioxide 30 mmol/L (22-30); Chloride 108 mmol/L (98-107); Estimated Creatinine Clearance 72 ml/min; Glucose 130 mg/dl (70-99); Magnesium 2.0 mg/dl (1.6-2.3); Potassium 3.6 mmol/L (3.5-5.1); Sodium 142 mmol/L (135-145); eGFR 56.83
[2025-01-26 06:25] LABS: Hematocrit 39.0 % (39.0-52.0); Hemoglobin 11.4 g/dL (13.0-18.0); Mean Corp Hgb Conc. 29.2 g/dL (33.0-37.0); Mean Corpuscular Volume 77.8 fL (80.0-94.0); Platelet Count 174 10^3/uL (130-400); Red Cell Dist. Width 19.1 % (11.5-14.5)
[2025-01-26 08:29] LABS: Glucose - Point of Care 115 mg/dl (70-99)
--- NOTE | 2025-01-26 08:40 | PHA.VAN.FU ---
Vancomycin Assessment / Plan
- Assessment
Renal Function: SCR Decreasing
WBC's are: WNL
Concomitant Antimicrobials: cefepime
- Assessment - Therapeutic Drug Monitoring
Random Level: 15.2 - drawn ~9.5H after 2g loading dose
- Dosing Plan
Dosing by Level: Re-dose today (Vanc 1500mg)
- Monitoring Plan
Random Level: 01/27 600
- Follow Up
Pharmacy will continue to follow.
Vancomycin Follow UP
- -
Patient Age: 64
Vancomycin Day #: 2
Indication: Skin And Soft Tissue
Requesting Provider: Dr. Sutton
Pertinent Antimicrobial Allergies:
no pertinent antibiotic allergies
Height / Weight:
Height 5 ft 10 in
Actual Weight 122.3 kg
Pertinent Past Medical History: BMI ~39, DM
- Vital Signs / Lab Results
Temp Pulse Resp BP Pulse Ox
98.1 F 87 31 93/55 95
01/26/25 03:00 01/26/25 06:04 01/26/25 06:04 01/26/25 06:04 01/26/25 06:04
Lab Results - Hematology
01/25/25 01/26/25
18:59 05:43
WBC 14.0 H 10.0
Lab Results - Chemistry
01/25/25 01/26/25
18:59 05:43
BUN 46 H 39 H
Creatinine 1.6 H 1.4 H
Estimated Creat Clear 63 72
Albumin 3.8
01/25/25 01/25/25
18:59 23:00
Lactic Acid 2.0 Cancelled
Lab Results - Urine
01/25/25
18:59
Urine Nitrite (Reflex) Negative
Leukocyte Esterase Rfl 1+ A
Ur Squamous Epith Cells >30
Microbiology Results
01/25/25 19:06 Influenza Types A & B (JYOTHI) - Final
Nasal Swab Negative for Influenza A & B, NAAT
Negative results must be combined with clinical observations
and patient history.
Nucleic Acid Amplification test (NAAT)performed on the
[employer] platform.
Therapeutic Drug Monitoring
Random Vancomycin 15.2 ug/ml 01/26/25 05:43
[2025-01-26] MEDS: NOVOLOG FLEXPEN-MODERATE RESISTANCE SC ×2 (09:10→18:23)
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
--- NOTE | 2025-01-26 09:57 | CM ---
[facility] with Left Hemiparesis and Dysarthria, TBI with Intellectual Disability, Bipolar Disorder with Dx Cellulitis with sepsis. O2 8L overnight. Receiving IV Abx.
[facility];
the patient resides there in LTC on an [place] bed hold.
He was A/O and despite cognitive impairment is able to use a laptop.
The patient is assisted with ADLs and toileting.
He resists assistance with care and therefore sometimes has accidents in toileting.
The patient is able to feed himself.
the patient is w/c bound and self propels. He drags his foot on the ground while self propelling his w/c.
They have made modifications to the w/c with a foot rest, however patient does not follow instructions to elevate his foot/use the foot rest, and drags his foot on the ground.
The patient does not have O2 ordered.
The patient was receiving daily wound care and sees a wound care doctor on Fridays.
He was currently skilled for wound care, PT/OT.
PCP - Rusty Owen
Pharmacy - [facility]
The ph for report to 3rd floor nurse [phone], fax [phone].
Plan contact patient's sister prior to SNF return.
[facility].
[2025-01-26 10:19] LABS: Glycohemoglobin (HgbA1c) 6.6 % (4.0-5.6)
[2025-01-26] MEDS: NIASPAN TIME RELEASE 500 MG PO ×2 (11:38→20:13)
[2025-01-26] MEDS: FLUSH (NSS) 1 FLUSH IV (11:39)
[2025-01-26] MEDS: ELIQUIS 5 MG PO ×2 (11:42→20:14)
[2025-01-26] MEDS: LOPRESSOR PO (11:43)
[2025-01-26] MEDS: DEPAKOTE (12 HR RELEASE) 125 MG PO ×3 (11:43→21:37)
[2025-01-26] MEDS: ZYLOPRIM 300 MG PO (11:43)
[2025-01-26] MEDS: COLCHICINE 0.6 MG PO (11:44)
[2025-01-26 12:25] LABS: Glucose - Point of Care 189 mg/dl (70-99)
[2025-01-26] MEDS: VANCOCIN 530 MG IV (13:29)
[2025-01-26] MEDS: NOVOLOG FLEXPEN-MODERATE RESISTANCE 1 UNITS SC (13:31)
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
[2025-01-26] MEDS: DEMADEX 20 MG PO (15:46)
--- NOTE | 2025-01-26 16:11 | WOUNDNOTE ---
LEFT LATERAL LEG
--- NOTE | 2025-01-26 16:11 | WOUNDNOTE ---
LEFT TOE WOUND
--- NOTE | 2025-01-26 16:18 | WOUNDNOTE ---
WO RN note: Patient admitted with left LE cellulitis
See H&P for complete history.
PMH: CVA with Left Hemiparesis and Dysarthria, TBI with Intellectual Disability, Bipolar Disorder with Dx Cellulitis with sepsis.
Wound Location and type/assessment: Patient admitted with chronic wounds to left great toe and left dorsal foot. Scant amount of drainage noted in wounds. Foot is bright red due to cellulitic infection. Heels and sacrum are intact.
Appetite: Fair
Pressure redistribution devices in place: Patient is on a [employer] Max Air and turning schedule
Plan: Betadine applied to open areas. Areas of drainage covered with adaptic and ABD and shyanne. Patient declines use of air filled boots. Will confirm orders with hospitalist and update nurse. Updated care plan and will follow as needed.
Note to case management of equipment requested for discharge:
Recommend follow up at wound care center upon discharge.
--- NOTE | 2025-01-26 17:00 | PTCARENOTE ---
Patient oxygen weaned down to 4L. SPO2 93%-96% when the patient leaves the oxygen on. Patient continuously removes the o2. He feels that he does not need it. Denies any SOB. Lungs coarse, no cough noted. VS stable. Antibiotic infusing as
ordered. Wound care on left foot and toes by Michelle VARGAS . Left foot red and warm with edema. Patient refusing to elevate or wear a boot. Patient using urinal independently.
[2025-01-26 17:22] LABS: Glucose - Point of Care 137 mg/dl (70-99)
[2025-01-26] MEDS: ZYLOPRIM 100 MG PO (21:37)
[2025-01-26] MEDS: FLOMAX 0.4 MG PO (21:37)
[2025-01-26] MEDS: LIPITOR 10 MG PO (21:37)
[2025-01-26 22:29] LABS: Glucose - Point of Care 159 mg/dl (70-99)
[2025-01-27] VITALS (20 sets, daily range): BP systolic 74–119; BP diastolic 54–87
[2025-01-27] MEDS: MAXIPIME 1000 MG IV ×5 (01:03→23:18)
[2025-01-27] MEDS: STERILE WATER FOR INJECTION 10 ML IV ×5 (01:04→23:18)
[2025-01-27 06:22] LABS: Blood Urea Nitrogen 33 mg/dl (9-20); Calcium 8.6 mg/dl (8.4-10.2); Carbon Dioxide 34 mmol/L (22-30); Chloride 102 mmol/L (98-107); Estimated Creatinine Clearance 84 ml/min; Glucose 119 mg/dl (70-99); Potassium 3.4 mmol/L (3.5-5.1); Sodium 140 mmol/L (135-145); Uric Acid 6.1 mg/dl (3.5-8.5); eGFR > 60.00
--- NOTE | 2025-01-27 08:18 | PHA.VAN.FU ---
Vancomycin Assessment / Plan
- Assessment
Renal Function: SCR Decreasing
WBC's are: Trending Down
In the past 24 hrs, patient has been: Afebrile
Concomitant Antimicrobials: cefepime
- Assessment - Therapeutic Drug Monitoring
Random Level: 15.8 - drawn ~16H after previous dose of 1500mg
- Dosing Plan
Dosing by Level: Re-dose today (Vanc 1500mg)
- Monitoring Plan
Random Level: 01/28 600
- Follow Up
Pharmacy will continue to follow.
Vancomycin Follow UP
- -
Patient Age: 64
Vancomycin Day #: 3
Indication: Skin And Soft Tissue
Requesting Provider: Dr. Sutton / Dr. Ross
Pertinent Antimicrobial Allergies:
no pertinent antibiotic allergies
Height / Weight:
Height 5 ft 10 in
Actual Weight 122.3 kg
Pertinent Past Medical History: BMI ~39, DM
- Vital Signs / Lab Results
Temp Pulse Resp BP Pulse Ox
98.4 F 83 3 96/68 92
01/27/25 03:00 01/27/25 04:15 01/27/25 04:15 01/27/25 04:00 01/27/25 03:00
Lab Results - Hematology
01/25/25 01/26/25
18:59 05:43
WBC 14.0 H 10.0
Lab Results - Chemistry
01/25/25 01/26/25 01/27/25
18:59 05:43 05:45
BUN 46 H 39 H 33 H
Creatinine 1.6 H 1.4 H 1.2
Estimated Creat Clear 63 72 84
Albumin 3.8
01/25/25 01/25/25
18:59 23:00
Lactic Acid 2.0 Cancelled
Microbiology Results
01/25/25 18:59 Blood Culture - Preliminary
Blood/Venous No Growth in 24 hours- Final report to follow
01/25/25 18:59 Blood Culture - Preliminary
Blood/Venous No Growth in 24 hours- Final report to follow
01/25/25 19:06 Influenza Types A & B (JYOTHI) - Final
Nasal Swab Negative for Influenza A & B, NAAT
Negative results must be combined with clinical observations
and patient history.
Nucleic Acid Amplification test (NAAT)performed on the
[employer] platform.
Therapeutic Drug Monitoring
Random Vancomycin 15.8 ug/ml 01/27/25 05:45
[2025-01-27 08:48] LABS: Glucose - Point of Care 116 mg/dl (70-99)
[2025-01-27] MEDS: NIASPAN TIME RELEASE 500 MG PO ×2 (08:49→20:34)
[2025-01-27] MEDS: NOVOLOG FLEXPEN-MODERATE RESISTANCE SC (08:49)
[2025-01-27] MEDS: ELIQUIS 5 MG PO ×2 (08:50→20:34)
[2025-01-27] MEDS: COLCHICINE 0.6 MG PO (08:50)
[2025-01-27] MEDS: DEMADEX 20 MG PO ×2 (08:50→16:48)
[2025-01-27] MEDS: DEPAKOTE (12 HR RELEASE) 125 MG PO ×3 (08:50→23:18)
[2025-01-27] MEDS: ZYLOPRIM 300 MG PO (08:50)
[2025-01-27] MEDS: LOPRESSOR 25 MG PO (08:51)
[2025-01-27] MEDS: KCL 40 MEQ PO (08:53)
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
[2025-01-27 09:13] LABS: Magnesium 2.0 mg/dl (1.6-2.3)
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
[2025-01-27] MEDS: VANCOCIN 530 MG IV (11:18)
[2025-01-27 12:48] LABS: Glucose - Point of Care 167 mg/dl (70-99)
[2025-01-27] MEDS: NOVOLOG FLEXPEN-MODERATE RESISTANCE 1 UNITS SC ×2 (12:57→17:40)
--- NOTE | 2025-01-27 13:01 | PTCARENOTE ---
Patient AAOx3, forgetful at times, pleasant, slow speech. On 2L NC, sats 94%, requires reminding to keep oxygen on and reasoning for it. Aflutter on monitor, VSS. L foot wound dressing changed. Patient able to make needs known. Bed alarm on for
safety. Will continue to closely monitor.
[2025-01-27 17:47] LABS: Glucose - Point of Care 166 mg/dl (70-99)
[2025-01-27] MEDS: KCL 20 MEQ PO (20:34)
--- NOTE | 2025-01-27 21:00 | PTCARENOTE ---
Pt received from dayshift RN. Pt answers all orientation questions, forgetful at times, pleasant. does remove 02 from nose occasionally and desats to 85%, pt recovers to >95% shortly after returning NC to nose. afib on monitor HS oral care
preformed. urinating via urinal. took hs pills whole with water. assessment as documented. call light in reach.
[2025-01-27 21:12] LABS: Glucose - Point of Care 143 mg/dl (70-99)
[2025-01-27] MEDS: ZYLOPRIM 100 MG PO (23:17)
[2025-01-27] MEDS: FLOMAX 0.4 MG PO (23:18)
[2025-01-27] MEDS: LIPITOR 10 MG PO (23:18)
[2025-01-28] VITALS (9 sets, daily range): BP systolic 93–121; BP diastolic 60–108
[2025-01-28 04:55] LABS: Blood Urea Nitrogen 28 mg/dl (9-20); Calcium 8.8 mg/dl (8.4-10.2); Carbon Dioxide 32 mmol/L (22-30); Chloride 100 mmol/L (98-107); Estimated Creatinine Clearance 84 ml/min; Glucose 115 mg/dl (70-99); Potassium 3.5 mmol/L (3.5-5.1); Sodium 140 mmol/L (135-145); eGFR > 60.00
[2025-01-28] MEDS: STERILE WATER FOR INJECTION 10 ML IV (05:11)
[2025-01-28] MEDS: MAXIPIME 1000 MG IV (05:11)
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
[2025-01-28 08:36] LABS: Glucose - Point of Care 121 mg/dl (70-99)
[2025-01-28] MEDS: ZYLOPRIM 300 MG PO (08:52)
[2025-01-28] MEDS: COLCHICINE 0.6 MG PO (08:52)
[2025-01-28] MEDS: ELIQUIS 5 MG PO (08:52)
[2025-01-28] MEDS: NOVOLOG FLEXPEN-MODERATE RESISTANCE SC (08:52)
[2025-01-28] MEDS: NIASPAN TIME RELEASE 500 MG PO (08:52)
[2025-01-28] MEDS: LOPRESSOR 25 MG PO (08:53)
[2025-01-28] MEDS: DEPAKOTE (12 HR RELEASE) 125 MG PO (08:53)
[2025-01-28] MEDS: KCL 40 MEQ PO (08:53)
[2025-01-28] MEDS: DEMADEX 20 MG PO (08:54)
[2025-01-28] MEDS: KCL PO (09:23)
--- NOTE | 2025-01-28 09:30 | PTCARENOTE ---
Assumed care of pt after morning rounds, he is drowsy but arousable and pleasant. He can let his needs known. Oygen at 4L NC, resp 24 with pulse ox 94%, lungs diminished throughout. A flutter on monitor.
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
--- NOTE | 2025-01-28 09:37 | PHA.VAN.FU ---
Vancomycin Assessment / Plan
- Assessment
Renal Function: Stable
In the past 24 hrs, patient has been: Afebrile
Concomitant Antimicrobials: cefepime
- Assessment - Therapeutic Drug Monitoring
Random Level: 17 - drawn ~17H after previous dose of 1500mg
- Dosing Plan
Dosing by Level: Re-dose today (Vanc 1250mg)
Dosing Comments: reducing dose slightly given accumulation
CrCl does not seem to accurately predict patient's vanc clearance
- Monitoring Plan
Random Level: 01/29 06
- Follow Up
Pharmacy will continue to follow.
Vancomycin Follow UP
- -
Patient Age: 64
Vancomycin Day #: 4
Indication: Skin And Soft Tissue
Requesting Provider: Dr. Sutton / Dr. Ross
Pertinent Antimicrobial Allergies:
no pertinent antibiotic allergies
Height / Weight:
Height 5 ft 10 in
Actual Weight 122.3 kg
Pertinent Past Medical History: BMI ~39, DM
- Vital Signs / Lab Results
Temp Pulse Resp BP Pulse Ox
98.1 F 95 30 102/66 93
01/28/25 07:43 01/28/25 08:54 01/28/25 07:45 01/28/25 08:54 01/28/25 07:45
Lab Results - Hematology
01/25/25 01/26/25
18:59 05:43
WBC 14.0 H 10.0
Lab Results - Chemistry
01/25/25 01/26/25 01/27/25
18:59 05:43 05:45
BUN 46 H 39 H 33 H
Creatinine 1.6 H 1.4 H 1.2
Estimated Creat Clear 63 72 84
Albumin 3.8
01/28/25
04:24
BUN 28 H
Creatinine 1.2
Estimated Creat Clear 84
Albumin
01/25/25 01/25/25
18:59 23:00
Lactic Acid 2.0 Cancelled
Microbiology Results
01/25/25 18:59 Blood Culture - Preliminary
Blood/Venous No Growth in 48 hours- Final report to follow
01/25/25 18:59 Blood Culture - Preliminary
Blood/Venous No Growth in 48 hours- Final report to follow
01/25/25 18:59 Urine Culture - Final
Urine No Significant Growth
Therapeutic Drug Monitoring
Random Vancomycin 17.0 ug/ml 01/28/25 04:24
[2025-01-28] MEDS: BACTRIM DS 800 MG/160 MG 1 TABLET PO (10:50)
[2025-01-28] MEDS: LEVAQUIN 750 MG PO (11:16)
--- NOTE | 2025-01-28 12:35 | W.DS.TRANS ---
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
-
Discharge Instructions:
Discharge Diagnosis/Procedures Septic shock, left foot skin and soft tissue
infection, suspected sleep apnea
Diet Diabetic, Carb Controlled
Activity With assistance
Driving Restrictions No driving
Bathing Restrictions None
Blood Work BMP in 1 week
Instructions:
Stand-Alone Forms:
Changes to Home Medications: No
Discharge Medications:
DC Medications w/original date entered in [employer]
atorvastatin 10 mg tablet 10 mg PO HS High cholesterol 06/03/17
acetaminophen 325 mg tablet 650 mg PO Q6HPRN PRN temp>100, mild pain 03/28/18
magnesium hydroxide 400 mg/5 mL oral suspension (Milk of Magnesia) 30 ml PO DAILYPRN PRN constipation 03/28/18
sodium phosphates 19 gram-7 gram/118 mL enema (Enema) 118 ml MN DAILYPRN PRN if dulcolax ineffective in 24h 03/28/18
allopurinol 300 mg tablet 300 mg PO DAILY Gout 02/17/20
apixaban 5 mg tablet (Eliquis) 5 mg PO BID Blood clot prevention/tx 02/17/20
metolazone 2.5 mg tablet 2.5 mg PO TUSA give 30min prior to torsemide 11/23/20
torsemide 20 mg tablet 20 mg PO BID Fluid Retention/Swelling 11/23/20
ammonium lactate 12 % lotion 1 applic topical BID left lower limb 12/01/21
colchicine 0.6 mg tablet 0.6 mg PO DAILY Gout 12/01/21
potassium chloride 20 mEq tablet,extended release(part/cryst) (Klor-Con M) 20 meq PO BID Electrolyte Repletion 12/01/21
allopurinol 100 mg tablet 100 mg PO HS Gout 03/08/22
bisacodyl 10 mg rectal suppository (Dulcolax (bisacodyl)) 10 mg MN DAILY PRN constipation 04/01/22
dextrose 40 % oral gel (Gluco Burst) 15 g PO DAILY PRN bs <60 04/01/22
glucagon HCl 1 mg solution for injection (Glucagon (HCl) Emergency Kit) 1 mg IM PRN PRN hypoglycemia 04/01/22
metformin 1,000 mg tablet 1,000 mg PO BID@0800,1700 Diabetes #0 tabs 04/04/22
cholecalciferol (vitamin D3) 25 mcg (1,000 unit) tablet 25 mcg PO DAILY Supplement 11/26/24
divalproex 125 mg tablet,delayed release 125 mg PO TID Mental Health/Anxiety 11/26/24
metoprolol tartrate 25 mg tablet 25 mg PO DAILY Heart Disease/Condition 11/26/24
niacin 500 mg tablet 500 mg PO BID Supplement 11/26/24
tamsulosin 0.4 mg capsule 0.4 mg PO HS Urinary Issue 11/26/24
levofloxacin 750 mg tablet 750 mg PO DAILY #5 tabs 01/28/25
sulfamethoxazole 800 mg-trimethoprim 160 mg tablet (Bactrim DS) 1 tab PO BID #10 tabs 01/28/25
Home Medication Changes
Pending Results: No
[2025-01-28] MEDS: NOVOLOG FLEXPEN-MODERATE RESISTANCE 1 UNITS SC (13:17)
[2025-01-28 13:26] LABS: Glucose - Point of Care 175 mg/dl (70-99)
--- NOTE | 2025-01-28 14:04 | PTCARENOTE ---
Assumed care of pt this morning after report. Pt is alert, jovial and in good spirits. He denies pain. He has HX of left sided weakness but is able to pull self up in bed and turn with minimal assist. Atrial flutter on monitor, EKG completed per MD
order. O2 at 4L NC, pt is a bit noncompliant and frequently removes it and he does desaturate to 88%. Pt is hungry and eating all of meals. using urinal PRN. Assessment completed and documented. Report called to [phone] 3rd floor RN
--- NOTE | 2025-01-28 14:58 | CM ---
Patient from [facility] with Hx CVA with Left Hemiparesis and Dysarthria, TBI with Intellectual Disability, Bipolar Disorder with Dx Cellulitis with sepsis. O2 4L. Seen by wound care nurse.
Spoke with Sheri, s [facility];
they are able to accept the patient back today.
Sheri is aware that the patient is currently on O2 and they will have O2 setup for him.
The ph for report to 3rd floor nurse [phone], fax [phone].
Met with patient and spoke to his sister Diana by phone; both agree to the patient returning to [facility] today. IMM completed.
Plan return to [facility] today by ambulance.
== END 2025-01-28 15:59 | DRG 871 ==
LOC: IMU 21:28
PROVIDERS: Emergency Medicine; ADMITTING PHYSICIAN Internal Medicine; ATTENDING PHYSICIAN Hospitalist; EMERGENCY PHYSICIAN Emergency Medicine; FAMILY PHYSICIAN Internal Medicine; OTHER PHYSICIAN Internal Medicine Infectious Disease
DX: A41.89 Other specified sepsis (principal); J96.21 Acute and chronic respiratory failure with hypoxia; J96.22 Acute and chronic respiratory failure with hypercapnia; R65.21 Severe sepsis with septic shock; N17.9 Acute kidney failure, unspecified; L03.90 Cellulitis, unspecified; I48.92 Unspecified atrial flutter; I50.32 Chronic diastolic (congestive) heart failure; E66.2 Morbid (severe) obesity with alveolar hypoventilation; I69.354 Hemiplegia and hemiparesis following cerebral infarction affecting left non-dominant side; Z11.52 Encounter for screening for COVID-19; Z79.01 Long term (current) use of anticoagulants; Z66 Do not resuscitate; I48.0 Paroxysmal atrial fibrillation; I11.0 Hypertensive heart disease with heart failure; E87.6 Hypokalemia; E11.51 Type 2 diabetes mellitus with diabetic peripheral angiopathy without gangrene; E11.621 Type 2 diabetes mellitus with foot ulcer; Z68.38 Body mass index [BMI] 38.0-38.9, adult
CPT/HCPCS: 71045; 73620; 80048; 80053; 80202; 81003; 81015; 82962; 83036; 83605; 83735; 84550; 85025; 85027; 87040; 87086; 87502; 87811; 93005; 96365; 96375; 99285